=== PATIENT | female | born 1945 | race Caucasian/White ===

== ENCOUNTER → 2020-11-01 16:43 | Outpatient (CLI) | payer MEDICARE, BC, SELFPAY ==
--- NOTE | 2020-11-01 16:49 | RAD_ITS ---
STUDY: X-RAY CHEST REASON FOR EXAM: Female, 75 years old. Fever and cough TECHNIQUE: PA and 2 lateral views of the chest. COMPARISON: None. FINDINGS: Lungs are expanded with superimposed interstitial and airspace opacifications in both lung everett suspicious for Covid pneumonia. There is no demonstrated pleural abnormality. Normal size heart. Normal mediastinum and abhijeet. Normal visualized pulmonary arteries. There is atherosclerotic calcification of the aortic arch with tortuosity. There are diffuse degenerative changes of the visualized thoracic spine. There is degenerative osteoarthritis of the bilateral shoulders. There is no demonstrated abnormality of the visualized soft tissue structures of the upper abdomen. RAD/Chest PA and Lateral IMPRESSION: Interstitial and airspace opacifications in both lung everett without effusions. Follow-up recommended to ensure resolution Electronically Signed: Gerhard Gonzáles MD at 17:08 EDT , Service support ,
== END ==
PROVIDERS: PCP Family Medicine Geriatric Medicine; Referring Provider Nurse Practitioner; Visit Provider Nurse Practitioner
DX: Z20.822 Contact with and (suspected) exposure to COVID-19 (principal)
CPT/HCPCS: 71046

== ENCOUNTER 2022-07-04 16:40 | Emergency (ER) | payer MEDICARE, BC, SELFPAY ==
[2022-07-04 16:45] VITALS: BP 167/70; PULSE 78; RESP 16; TEMP 36.6; O2SAT 98; BMI 31.1
[2022-07-04 17:45] LABS: Absolute Lymphocyte Count 2.37 X10^3/uL (0.83-4.51); Absolute Neutrophil Count 3.4 X10^3/uL (2.0-7.7); Basophil# 0.04 X10^3/uL; Basophil% 0.6 % (0-1); Eosinophil# 0.24 X10^3/uL; Eosinophils% 3.6 % (0-5); Hematocrit 42.1 % (37-47); Hemoglobin 13.6 g/dL (12.0-15.0); Lymphocyte # 2.37 X10^3/ul (0.83-4.51); Lymphocyte % 35.5 % (19-41); Mean Corp Hgb Conc 32.3 g/dL (32-36); Mean Corpuscular Hgb 29.9 pg (27.0-32.0); Mean Corpuscular Volume 92.5 fL (81-99); Monocyte# 0.61 X10^3/uL; Monocyte% 9.1 % (0-10); NRBC Flagged by Analyzer 0 % (0-5); Neutrophil % 51.1 % (47-70); Platelet Count 183 K/mm3 (150-450); RBC Distribution Width CV 13.2 % (11.6-14.6); RBC Distribution Width SD 44.5 fl (35.1-43.9); Red Blood Count 4.55 M/mm3 (4.2-5.4); White Blood Count 6.7 K/mm3 (4.4-11.0)
[2022-07-04 17:48] LABS: Prothrombin Time (Protime)PT. 13.6 SECONDS (11.7-14.9)
[2022-07-04 17:49] LABS: Partial Thromboplast Time 31.1 Seconds (24.1-36.2)
[2022-07-04 17:50] LABS: Anion Gap 6 (5-15); BUN 17 mg/dL (7-18); BUN/Creat Ratio 25.5 RATIO (10-20); Calcium,Total 9.7 mg/dL (8.5-10.1); Chloride 108 mmol/L (98-107); Creatinine, Serum 0.67 mg/dL (0.55-1.02); EST Glomerular Filtration Rate 91 mL/min (>60); Est Glom Filt Rate - Afr Amer 110 mL/min (>60); Estimated Creatinine Clearance 37.26 ml/min; Glucose 84 mg/dL (74-106); Sodium Level 140 mmol/L (136-145)
--- NOTE | 2022-07-04 17:51 | EDS_ITS ---
HPI History of Present Illness Chief Complaint: Lower Extremity Injury Informant: patient and spouse/S.O. Narrative Narrative: Sent here from radiology positive DVT study left leg shortly prior to arrival. She has been having leg and feet pain for past few months. Issues of back pain in the past. She seen her spine surgeon Dr. Matos who ordered ultrasounds of her legs today. Denies chest pains or shortness of breath. Denies leg swelling. No history of PE or DVT. Denies history of chronic kidney disease. She states her nurse practitioner from [facility], Reji Herring just retired last seen 2 months ago. Prior similar symptoms: No PFSH PFSH Medical History Hemorrhoids HTN (hypertension) Incontinence Lumbar strain SOB (shortness of breath) Strain of left hip Home Medications cyclobenzaprine 10 mg tablet 10 mg PO TID PRN muscle spasm #30 tabs 12/01/20 [Rx Last Taken Unknown] ibuprofen 600 mg tablet 600 mg PO Q6H PRN pain #60 tabs 12/01/20 [Rx Last Taken Unknown] apixaban 5 mg (74 tabs) tablets in a dose pack (Eliquis DVT-PE Treat 30D Start) 5 mg PO BID #74 tabs 07/04/22 [Rx Last Taken Unknown] apixaban 5 mg tablet (Eliquis) 5 mg PO BID #74 tabs 07/04/22 [Rx Last Taken Unknown] Allergy/AdvReac Type Severity Reaction Status Date / Time Sulfa (Sulfonamide Allergy Hives Verified 12/01/20 11:14 Antibiotics) Social History Smoking Status: Never smoker alcohol intake: never ROS ROS ED Constitutional Constitutional ED: Denies chills, fever(s) or sweats Eyes Eyes: Denies change in vision ENT ENT ED: Denies dysphagia or sore throat Cardiovascular Cardiovascular: Denies chest pain, leg edema, palpitations or racing heartbeat Respiratory/Chest Respiratory/Chest: Denies cough, dyspnea or dyspnea on exertion Gastrointestinal Gastrointestinal: Denies abdominal pain, diarrhea, nausea or vomiting Genitourinary Genitourinary ED: Denies dysuria, hematuria or urinary frequency Musculoskeletal Musculoskeletal: Reports extremity pain; Denies back pain or neck pain Integumentary Denies rash or wounds Neurologic Neurologic: Denies headache(s), paresthesias or weakness EXAM Physical Exam Const Vital Signs: 07/04/22 16:45 Temperature 97.8 F Temperature Source Temporal Pulse Rate 78 Respiratory Rate 16 Blood Pressure 167/70 H Blood Pressure Mean 102 Pulse Ox 98 Oxygen Delivery Method Room Air Positive well nourished and well developed General Appearance ED: well developed and NAD HEENT Reports moist mucous membranes normocephalic and atraumatic Eyes PERRL, EOMs intact bilaterally and conjunctivae normal General Eye ED: Yes normal appearance of both eyes Neck no lymphadenopathy and supple General: Negative for tenderness Chest Wall Chest: Negative for tenderness Resp normal respiratory effort and normal air movement Effort and Inspection: symmetric chest movement; Negative for respiratory distress Cardio regular rate, regular rhythm and no murmurs Peripheral Pulses: pulses 2+ throughout GI normal to inspection, nondistended, normoactive bowel sounds and non-tender Palpation: Negative for guarding or rebound tenderness present Back/Spine no CVA tenderness and no thoracic nor lumbar tenderness Extremity normal to inspection Extremity Narrative: No calf or medial thigh tenderness. Strong dorsal pedis and PT pulses bilaterally. General Extremety ED: Negative for edema or tenderness General Extremity: Negative for edema Neuro oriented x3 and no sensory deficits noted Sensorium / Orientation: awake and alert Skin no rashes or lesions noted and no wounds MDM MDM MDM Narrative Medical decision making narrative: Interventions / MDM: Differential diagnosis: DVT, neuropathy Diagnosis considered but do not suspect: N/A My EKG interpretation: N/A Imaging independently reviewed and interpreted by myself: N/A External documents reviewed: N/A Test considered but not ordered:N/A ED course: Patient ultrasound report final read reviewed left soleus vein DVT. Patient was last labs in the system was in 2017 I did check lab creatinine 0.67 creatinine clearance is normal. Hemoglobin 13.6. Platelets 183. 1800: We will reach out to her PCP office for discussion of management plan. Discussed with Dr. Espinoza, updated on findings agree with current plan. Her first month Eliquis was written for meds to bed with first dose given in the ED. Patient will follow-up as an outpatient. All questions were answered. Re-evaluation: stable. Disposition discussed with patient/family/significant other: Patient and significant other Case discussed with consulting clinician: PCP Dr. Espinoza Lab Data Attestation: I reviewed the patient's lab results. Labs: Laboratory Results - last 24 hr 07/04/22 07/04/22 07/04/22 17:30 17:30 17:30 WBC 6.7 RBC 4.55 Hgb 13.6 Hct 42.1 MCV 92.5 MCH 29.9 MCHC 32.3 RDW Std Deviation 44.5 H RDW Coeff of [place] 13.2 Plt Count 183 MPV 10.0 Immature Gran % (Auto) 0.100 Neut % (Auto) 51.1 Lymph % (Auto) 35.5 [place] % (Auto) 9.1 Eos % (Auto) 3.6 Baso % (Auto) 0.6 Absolute Neuts (auto) 3.4 Absolute Lymphs (auto) 2.37 Nucleated RBC % 0 PT 13.6 INR 1.0 APTT 31.1 Sodium 140 Potassium 4.0 Chloride 108 H Carbon Dioxide 26.0 Anion Gap 6 BUN 17 Creatinine 0.67 Estim Creat Clear Calc 37.26 Est GFR (MDRD) Af Amer 110 Est GFR (MDRD) Non-Af 91 BUN/Creatinine Ratio 25.5 H Glucose 84 Calcium 9.7 Discharge Plan Triage Chief Complaint: Lower Extremity Injury ED Provider: Matt Luciano Dx/Rx/DC Orders Clinical Impression: Acute deep vein thrombosis (DVT) of left lower extremity, Neuropathy Instructions: DVT Dc, ED Neuropathy, Peripheral Prescriptions: New Eliquis DVT-PE Treat 30D Start 5 mg (74 tabs) tablets,dose pack 5 mg PO BID Qty: 74 0RF Eliquis 5 mg tablet 5 mg PO BID Qty: 74 0RF Rx Instructions: 10 mg twice a day for the first week. Then 5 mg twice a day. No Action ibuprofen 600 mg tablet 600 mg PO Q6H PRN (Reason: pain) Qty: 60 0RF cyclobenzaprine 10 mg tablet 10 mg PO TID PRN (Reason: muscle spasm) Qty: 30 0RF Primary Care Provider: Simba Espinoza Referrals: Simba Espinoza MD [Primary Care Provider] - 3-5 Days Activity Restrictions/Additional Instructions: Left soleus DVT. Take Eliquis as prescribed. Will likely need 3-month treatment. She radicular pain in her legs likely from neuropathy from sciatica. Follow-up with Dr. Matos for this. Follow-up with your PCP office for continued management of your DVT. Disposition Disposition: Home, Self Care Discharge Date/Time: 07/04/22 20:15
== END 2022-07-04 20:15 | disposition home or self-care (01) ==
PROVIDERS: Emergency Provider Emergency Medicine; PCP Family Medicine; Visit Provider Emergency Medicine
DX: I82.462 Acute embolism and thrombosis of left calf muscular vein (principal); G62.9 Polyneuropathy, unspecified; I10 Essential (primary) hypertension; Z79.1 Long term (current) use of non-steroidal anti-inflammatories (NSAID)
CPT/HCPCS: 80048; 85025; 85610; 85730; 93970; 99284; A4216

== ENCOUNTER → 2022-07-04 | Outpatient (CLI) | payer MEDICARE, BC, SELFPAY ==
--- NOTE | 2022-07-04 16:07 | VDLE_ITS ---
Reason For Study: bhavik LE leg pain RIGHT LEFT GSV is normal. GSV is normal. CFV is compressible, spontaneous, phasic, CFV is compressible, spontaneous, phasic, competent and demonstrates normal competent, and demonstrates normal augmentation. augmentation. FV is compressible, spontaneous, phasic, FV is compressible, spontaneous, phasic, competent and demonstrates normal competent and demonstrates normal augmentation. augmentation. POP V is compressible, spontaneous, phasic, POP V is compressible, spontaneous, phasic, competent and demonstrates normal competent and demonstrates normal augmentation. augmentation. T/P Trunk is compressible. T/P Trunk is compressible. PTV is compressible. PTV is compressible. RT PerV is compressible. LT PerV is compressible. Procedure Soleus V is dilated and noncompressible. This is a venous duplex using B-mode, color flow and spectral Doppler. Exam performed in department. The exam was diagnostic. A preliminary report was called and/or faxed to Dr. Matos. Pt to be taken to ED per Dr. Matos. VL/Venous Duplex US - Bhavik Extrem Interpretation Summary Acute deep vein thrombosis is noted in the left soleus vein. The remainder of t he left lower extremity deep venous system is patent and compressible. Deep veins of the righ t lower extremity are patent and compressible segmentally. There is no evidence of right lower extrem ity deep vein thrombosis. Valvular competence appears intact within the proximal deep venous systems bilaterally. The great saphenous veins appear bilaterally patent and compressible segmentall y. Ordering Physician: Albert Matos Performed By: Daniel Guadalupe RVT
== END | disposition home or self-care (01) ==
LOC: CVS 15:57
PROVIDERS: Referring Provider Orthopaedic Surgery; Visit Provider Orthopaedic Surgery
DX: M79.662 Pain in left lower leg (principal); M79.661 Pain in right lower leg
CPT/HCPCS: 93970

== ENCOUNTER → 2022-09-28 | Outpatient (CLI) | payer MEDICARE, BC, SELFPAY ==
--- NOTE | 2022-09-28 08:07 | VDLE_ITS ---
Reason For Study: Left leg pain RIGHT LEFT CFV is compressible, spontaneous, phasic, GSV is normal. competent and demonstrates normal CFV is compressible, spontaneous, phasic, augmentation. competent, and demonstrates normal Procedure augmentation. This is a venous duplex using B-mode, color FV is compressible, spontaneous, phasic, flow and spectral Doppler. competent and demonstrates normal Exam performed in department. augmentation. Compared to 07/04/22. POP V is compressible, spontaneous, phasic, A preliminary report was called and/or faxed competent and demonstrates normal to Dr. Matos. augmentation. T/P Trunk is compressible. PTV is compressible. LT PerV is compressible. SoleusV is compressible. VL/Venous Duplex US, Unilateral Interpretation Summary Deep veins of the left lower extremity are patent and compressible segmentally. There is no evidence of left lower extremity deep vein thrombosis. Valvular competence appears intac t within the proximal deep venous system on the left . The left great saphenous vein appears patent a nd compressible segmentally. The right common femoral vein is patent and compressible . There h as been resolution of the left lower extremity deep vein thrombosis since a prior study on 07/04/2022. Ordering Physician: Albert Matos Referring Physician: Simba Espinoza Performed By: Enid Reina RVT
== END | disposition home or self-care (01) ==
LOC: CVS 08:02
PROVIDERS: PCP Family Medicine; Referring Provider Orthopaedic Surgery; Visit Provider Orthopaedic Surgery
DX: M79.662 Pain in left lower leg (principal)
CPT/HCPCS: 93971

== ENCOUNTER → 2022-10-27 | Outpatient (CLI) | payer MEDICARE, BC, SELFPAY ==
[2022-11-13 11:09] LABS: Anti-Cardiolipin Ab, IgA, Qn < 9 APL U/mL (0-11); Anti-Cardiolipin Ab, IgG, Qn < 9 GPL U/mL (0-14); Anti-Cardiolipin Ab, IgM, Qn < 9 MPL U/mL (0-12); Protein C, Functional 141 % (73-180); Protein S, Funtional 84 % (63-140)
== END | disposition home or self-care (01) ==
LOC: LAB 11:16
PROVIDERS: PCP Family Medicine; Referring Provider Family Medicine; Visit Provider Family Medicine
DX: I82.429 Acute embolism and thrombosis of unspecified iliac vein (principal)
CPT/HCPCS: 36415; 81241; 85303; 85306; 86147

== ENCOUNTER 2023-02-21 15:28 | Emergency (ER) | payer MEDICARE, BC, SELFPAY ==
[2023-02-21 15:29] VITALS: BP 148/85; PULSE 78; RESP 16; TEMP 36.2; O2SAT 98; BMI 29.8
--- NOTE | 2023-02-21 15:55 | VDLE_ITS ---
Reason For Study: LLE Swelling RIGHT LEFT CFV is compressible, spontaneous, phasic, CFV is compressible, spontaneous, phasic, competent and demonstrates normal competent, and demonstrates normal augmentation. augmentation. GSV is normal. FV is compressible, spontaneous, phasic, competent and demonstrates normal augmentation. POP V is compressible, spontaneous, phasic, competent and demonstrates normal augmentation. T/P Trunk is compressible. PTV is compressible. LT PerV is compressible. Lt Soleal V is compressible. VL/Venous Duplex US, Unilateral Interpretation Summary Deep veins of the left lower extremity are patent and compressible segmentally. There is no evidence of left lower extremity deep vein thrombosis. Valvular competence appears intac t within the proximal deep venous system on the left . The left great saphenous vein appears patent a nd compressible segmentally. The right common femoral vein is patent and compressible . Ordering Physician: Eriberto Boone Performed By: Deangelo Burton RVT
--- NOTE | 2023-02-21 15:58 | EDS_ITS ---
HPI History of Present Illness Chief Complaint: Edema Detail of Chief Complaint: Swelling and discomfort right lower extremity Informant: patient Onset/Context/Timing Onset: Yesterday Context: Sudden Onset Timing: Continuous Quality of Pain: Dull Location: Left leg and foot Current Severity: Mild Maximum Severity: Moderate Worsened by: Palpitation Relieved by: Nothing Associated Symptoms Associated Symptoms: Negative for Parasthesia, Weakness or Loss of Funtion Narrative Narrative: Patient is a 77-year-old woman with history of DVT. Her apixaban was stopped November. She states she has had a prior clot in the left lower extremity. She denies shortness of breath, pleuritic chest pain, orthopnea, PND or dyspnea on exertion. She states the right foot is slightly swollen. She denies history of congestive heart failure. She does have a history of hypertension. She denies fever, chills night sweats. She also raise concern for cellulitis. There is no history of crystal induced arthritis. There is no history of weight loss or night sweats. There is no history of cancer. Tetanus Immunization: 5-10 years [facility] Medical History Hemorrhoids HTN (hypertension) Incontinence Lumbar strain SOB (shortness of breath) Strain of left hip Home Medications cyclobenzaprine 10 mg tablet 10 mg PO TID PRN muscle spasm #30 tabs 12/01/20 [Rx Last Taken Unknown] ibuprofen 600 mg tablet 600 mg PO Q6H PRN pain #60 tabs 12/01/20 [Rx Last Taken Unknown] apixaban 5 mg (74 tabs) tablets in a dose pack (Eliquis DVT-PE Treat 30D Start) 5 mg PO BID #74 tabs 07/04/22 [Rx Last Taken Unknown] apixaban 5 mg tablet (Eliquis) 5 mg PO BID #74 tabs 07/04/22 [Rx Last Taken Unknown] nitrofurantoin monohydrate/macrocrystals 100 mg capsule 100 mg PO Q12 #10 CAPSULES 02/21/23 [Rx Last Taken Unknown] Allergy/AdvReac Type Severity Reaction Status Date / Time Sulfa (Sulfonamide Allergy Hives Verified 02/21/23 15:29 Antibiotics) Social History (Updated 02/21/23 @ 16:[address] Eriberto Boone MD) household members: none Smoking Status: Never smoker alcohol intake: never ROS ROS ED Constitutional Constitutional ED: Denies chills, fever(s), subjective, sweats or weight loss Eyes Eyes: Denies blurry vision or change in vision ENT ENT ED: Denies ear pain, rhinorrhea or sore throat Cardiovascular Cardiovascular: Denies chest pain, orthopnea, palpitations or paroxysmal nocturnal dyspnea Respiratory/Chest Respiratory/Chest: Denies cough, dyspnea, dyspnea on exertion, orthopnea or paroxysmal nocturnal dyspnea Gastrointestinal Gastrointestinal: Denies abdominal pain, constipation, nausea or vomiting Genitourinary Genitourinary ED: Denies dysuria, hematuria or urinary frequency Musculoskeletal Musculoskeletal: Denies arthralgias, back pain, myalgias or neck pain Integumentary Denies rash Neurologic Neurologic: Denies headache(s), paresthesias or weakness Psychiatric Psychiatric: Denies anxiety or depression Endocrine Endocrinology: Reports polydipsia and polyuria Hematologic/Lymphatic Hematologic/Lymphatic: Denies easy bleeding or easy bruising EXAM Physical Exam Narrative Exam Narrative: Vital signs reveal elevated blood pressure 148/85 and mean arterial pressure 106. Vitals otherwise unremarkable. Const Vital Signs: 02/21/23 15:29 02/21/23 16:51 Temperature 97.2 F L Temperature Source Oral Pulse Rate 78 Respiratory Rate 16 Respiratory Effort Normal Non-Labored Blood Pressure 148/85 H Blood Pressure Mean 106 Pulse Ox 98 Oxygen Delivery Method Room Air Positive well nourished, well developed and obese General Appearance ED: well developed; Negative for NAD Nutritional Appearance: obese HEENT Reports moist mucous membranes normocephalic and atraumatic Eyes PERRL Eyes Narrative: Extract muscles intact. Sclera is anicteric. Conjunctive is pink. Neck full ROM and supple Resp normal respiratory effort, no retractions and clear to auscultation bilaterally Cardio regular rate, regular rhythm, S1 normal heart sound, S2 normal heart sound and no murmurs GI non-tender and non-distended Back/Spine no CVA tenderness Extremity Negative for normal to inspection Extremity Narrative: The left leg and foot are slightly discolored with swelling. There is a difference compared to the right lower extremity. Patient has no hair on her toes which would suggest peripheral arterial disease. There is no erythema, warmth, induration or lymphangitis. There is no popliteal lymphadenopathy. Neuro oriented x3, CN's II-XII intact bilaterally and moves all extremities Psych mental status grossly normal Skin no wounds Lesions: no lesions Rashes: no rashes MDM MDM MDM Narrative Medical decision making narrative: Differential diagnosis would be pelvic mass with unilateral obstruction, atypical presentation for heart failure, hypoalbuminemia, kidney disease with proteinuria and need to evaluate for DVT since she has had prior DVTs in that leg. She is presently not on an anticoagulant. Venous duplex study was obtained. CBC to assess white count anemia. BMP to assess renal function to determine if anticoagulant dose needs to be adjusted. History & Record Review Additional record(s) reviewed:: Prior outpatient record and Prior labs Lab Data Attestation: I reviewed the patient's lab results. Lab results narrative: White count and differential are normal. Basic metabolic panel with slight elevation of creatinine of 1.22 with a GFR estimated at 45. Urine is positive for blood, nitrites and leukoesterase. Patient has 2+ bacteria. Urine culture was sent. Since she has allergy to sulfa and has been told she cannot take quinolones since she has had ruptured tendons we will treat with Macrobid. She also had our list cephalexin for unknown reason. Labs: Laboratory Results - last 24 hr 02/21/23 02/21/23 16:10 16:45 WBC 8.7 RBC 4.67 Hgb 13.7 Hct 42.9 MCV 91.9 MCH 29.3 MCHC 31.9 L RDW Std Deviation 42.6 RDW Coeff of [place] 12.7 Plt Count 276 MPV 9.8 Immature Gran % (Auto) 0.600 Neut % (Auto) 56.1 Lymph % (Auto) 30.1 [place] % (Auto) 9.4 Eos % (Auto) 3.1 Baso % (Auto) 0.7 Absolute Neuts (auto) 4.9 Absolute Lymphs (auto) 2.62 Nucleated RBC % 0 Sodium 140 Potassium 4.1 Chloride 110 H Carbon Dioxide 29.0 Anion Gap 1 L BUN 19 H Creatinine 1.22 H Estim Creat Clear Calc 30.06 Est GFR (MDRD) Af Amer 55 L Est GFR (MDRD) Non-Af 45 L BUN/Creatinine Ratio 15.6 Glucose 98 Calcium 9.7 Total Bilirubin 0.40 AST 30 ALT 39 Alkaline Phosphatase 99 Total Protein 7.3 Albumin 3.7 Globulin 3.6 Albumin/Globulin Ratio 1.0 Urine Color Yellow Urine Clarity Clear Urine pH 7.0 Ur Specific [place] 1.010 Urine Protein Negative Urine Glucose (UA) Normal Urine Ketones Negative Urine Occult Blood 25 H Urine Nitrite Positive H Urine Bilirubin Negative Urine Urobilinogen Normal Ur Leukocyte Esterase 100 H Urine RBC 0-5 SEEN Urine WBC 0-5 SEEN Ur Squamous Epith Cells 0 SEEN Urine Bacteria 2+ Urine Mucus 0 SEEN Discharge Plan Triage Chief Complaint: Edema ED Provider: Eriberto Boone Dx/Rx/DC Orders Clinical Impression: Lymphedema of both lower extremities, HTN (hypertension), Acute cystitis, History of deep venous thrombosis Instructions: ED Peripheral Edema, Bilateral, ED Cystitis Female Adult Prescriptions: New nitrofurantoin monohyd/m-cryst [nitrofurantoin monohyd/m-cryst] 100 mg capsule 100 mg PO Q12 Qty: 10 0RF No Action ibuprofen 600 mg tablet 600 mg PO Q6H PRN (Reason: pain) Qty: 60 0RF cyclobenzaprine 10 mg tablet 10 mg PO TID PRN (Reason: muscle spasm) Qty: 30 0RF Eliquis DVT-PE Treat 30D Start 5 mg (74 tabs) tablets,dose pack 5 mg PO BID Qty: 74 0RF Eliquis 5 mg tablet 5 mg PO BID Qty: 74 0RF Rx Instructions: 10 mg twice a day for the first week. Then 5 mg twice a day. Primary Care Provider: Geraldine Allred Referrals: Simba Espinoza MD [Non-Staff] - Disposition Disposition: Home, Self Care
[2023-02-21 16:23] LABS: Absolute Lymphocyte Count 2.62 X10^3/uL (0.83-4.51); Absolute Neutrophil Count 4.9 X10^3/uL (2.0-7.7); Basophil# 0.06 X10^3/uL; Basophil% 0.7 % (0-1); Eosinophil# 0.27 X10^3/uL; Eosinophils% 3.1 % (0-5); Hematocrit 42.9 % (37-47); Hemoglobin 13.7 g/dL (12.0-15.0); Lymphocyte # 2.62 X10^3/ul (0.83-4.51); Lymphocyte % 30.1 % (19-41); Mean Corp Hgb Conc 31.9 g/dL (32-36); Mean Corpuscular Hgb 29.3 pg (27.0-32.0); Mean Corpuscular Volume 91.9 fL (81-99); Mean Platelet Vol. 9.8 fl (6.2-12.0); Monocyte# 0.82 X10^3/uL; Monocyte% 9.4 % (0-10); NRBC Flagged by Analyzer 0 % (0-5); Neutrophil # 4.89 X10^3/uL (2.7-7.7); Neutrophil % 56.1 % (47-70); Platelet Count 276 K/mm3 (150-450); RBC Distribution Width CV 12.7 % (11.6-14.6); RBC Distribution Width SD 42.6 fl (35.1-43.9); Red Blood Count 4.67 M/mm3 (4.2-5.4); White Blood Count 8.7 K/mm3 (4.4-11.0)
--- OUTSIDE RECORDS SUMMARY | 2023-02-21 16:45 | XMS RPT_ITS | CCD ---
Author Name Unknown Address [id number] [place] [address] [facility] Care Team Providers Care Open Hearth Worker Name Role Phone Unavailable Unavailable Unavailable Ada Varghese Unavailable Unavailable Ada Varghese Unavailable Unavailable Ada Varghese Unavailable Unavailable Ada Varghese Unavailable Unavailable Emma Marquita Unavailable Thelma Valerio Unavailable Unavailable Ada Grier Unavailable Unavailable Unavailable Unavailable Carly Gonzales Unavailable Unavailable Kosta Rea Unavailable Unavailable Unavailable Unavailable Unavailable Evelina Kidd Unavailable Unavailable Evelina Kidd Unavailable Unavailable Toña Yeager Unavailable Heath Herrera Unavailable Unavailable Unavailable Unavailable Kristie Hunt Unavailable Unavailable Kosta Rea Unavailable Unavailable Heath Hardwick Unavailable Unavailable Unavailable Unavailable Evelina Kidd Unavailable Unavailable Maria Luz Moise CNP Unavailable Toña Yeager Unavailable Jolanta Lo MA Unavailable Unavailable Heath Herrera LPN Unavailable Unavailable Thelma Valerio Unavailable Unavailable Unavailable Unavailable Maria Luz Moise CNP Primary Care Provider Maria Luz Moise Unavailable Geraldine Allred MD Primary Care Provider Emma Maria Luz Unavailable Marge Domínguez DO Unavailable Geraldine Allred Unavailable Babatunde Orozco Unavailable Geraldine Allred Primary Care Unavailable VIDAL Orozco Attending Unavailable Geraldine Allred Attending Unavailable Geraldine Allred Primary Care Unavailable Brian Banks CNP Primary Care Provider 1( [phone] DAY, ANJU ANDERSON Attending Unavailable DAY, ANJU ANDERSON Referring Unavailable KOSTA BAUTISTA Primary Care Unavailable BRIAN BANKS Primary Care Unavailable DAY, ANJU ANDERSON Attending Unavailable GIOVANA JAMES Attending Unavailable MARIA LUZ MOISE Primary Care Unavailable MARIA LUZ MOISE Primary Care Unavailable ROLAND CORCORAN Attending Unavailable ANITA PEPPER Attending Unavailable MARIA LUZ MOISE Primary Care Unavailable Geraldine Allred MD Primary Care Provider Allergies Allergy Classification Reported Allergen(s) Allergy Type Date of Onset Reaction(s) Facility (17 sources) sulfADIAZINE; Translations: [SulfADIAZINE *Sulfonamides ] Drug Allergy [facility] Work Phone: (6 sources) Penicillins; Translations: [Penicillins] drug allergy [facility] 300 Work Phone: (6 sources) Sulfonamides (Antibiotic) drug allergy [facility] 300 Work Phone: (14 sources) Sulfonamides (Antibiotic); Translations: [SULFA (SULFONAMIDE ANTIBIOTICS)] Propensity to adverse reactions to drug 03-12-19 13 [facility] (5 sources) Clindamycin; Translations: [CLINDAMYCIN] Drug Allergy 04-06-19 22 Other: See Comments, Other (See Comments) [facility] Work Phone: (1 source) Sulfur Drug Allergy [facility] Medications Current Medications Medication Drug Class(es) Dates Sig (Normalized) Sig (Original) doxycycline monohydrate 100 mg oral capsule (2 sources) Tetracycline-cla ss Drug Start: 01-09-2022 End: 01-15-2022 take 1 capsule by mouth twice daily doxycycline monohydrate 100 mg oral capsule ; 1 cap(s) orally 2 times a day Quantity: 14 Refills: 0 Ordered: 09-Jan-2022 Babatunde Orozco Start: 09-Jan-2022 End: 15-Jan-2022 Generic Substitution Allowed Comments: Avoid prolonged or excessive exposure to direct and/or artificial sunlight while taking this medication.Do not take this drug if you are .Finish all this medication unless otherwise directed by prescriber.Medicati on should be taken with plenty of water. Completed/Discontinued Medications Medication Drug Class(es) Dates Sig (Normalized) Sig (Original) [id number] 200 actuat albuterol 0.09 mg/actuat metered dose inhaler (3 sources) beta2-Adrenergic Agonist Start: 11-12-2020 take 2 puff(s) by inhalation three times daily ProAir HFA 108 (90 Base) MCG/ACT Inhalation Aerosol Solution 2 (two) Puff tid for 0 days Quantity: 1 {Each} Refills: 0 Ordered: 12-Nov-2020 Maria Luz Moise Start : 12-Nov-2020 Active Comments: inhaler Problems Active Problems Problem Classification Problem Date Documented Da te Episodic/Chronic Abdominal pain (17 sources) Flank pain; Translations: [Flank pain] 12-06-2017 Episodic Anxiety disorders (20 sources) Anxiety; Translations: [Mixed anxiety and depressive disorder] 12-06-2017 Chronic Past or Other Problems Problem Classification Problem Date Documented Date Episodic/Chronic Coronary atherosclerosis and other heart disease (5 sources) Coronary atherosclerosis and other heart disease Other bone disease and musculoskeletal deformities (1 source) Other specified disorders of bone density and structure, left thigh; Translations: [Oth disrd of bone density and structure, left thigh] Onset: 04-14-2021 Episodic Other non-traumatic joint disorders (20 sources) Hip pain; Translations: [Hip pain, left] Onset: 02-22-2021 12-06-2017 Episodic Results Test Name Value Interpretation Reference Range Facil ity Vital Signs Date Time Vital Sign Value Performing Clinician Facility 06-21-2022 08:09-0400 Diastolic blood pressure 83 mm[Hg] Anju Fink MD Work Phone: [facility] 06-21-2022 08:09-0400 Heart rate 67 /min Anju Fink MD Work Phone: [facility] 06-21-2022 08:09-0400 SaO2% (BldA) [Mass fraction] 96 % Anju Fink MD Work Phone: [facility] 06-21-2022 08:09-0400 Systolic blood pressure 127 mm[Hg] Anju Fink MD Work Phone: [facility] 06-21-2022 07:59-0400 Body height 157.5 cm Anju Fink MD Work Phone: [facility] 06-21-2022 07:59-0400 Body mass index (BMI) [Ratio] 31.09 kg/m2 Anju Fink MD Work Phone: [facility] 06-21-2022 07:59-0400 Body weight 77.11 kg Anju Fink MD Work Phone: [facility] 01-09-2022 18:53-0500 Body height 157.4 cm Geraldine Allred Other Phone: [facility] 01-09-2022 18:53-0500 Body temperature 97.88 [degF] Geraldine Allred Other Phone: [facility] 01-09-2022 18:53-0500 Diastolic blood pressure 91 mm[Hg] Geraldine Brigida Other Phone: [facility] 01-09-2022 18:53-0500 Heart rate 74 /min Geraldine Seampaleksandra Other Phone: [facility] 01-09-2022 18:53-0500 Respiratory rate 18 /min Geraldine Allred Other Phone: [facility] 01-09-2022 18:53-0500 SaO2% (BldA) [Mass fraction] 97 % Geraldine Allred Other Phone: [facility] 01-09-2022 18:53-0500 Systolic blood pressure 156 mm[Hg] Geraldine Seampaleksandra Other Phone: [facility] 04-06-2021 17:21-0500 Body weight 74.39 kg Geraldine Allred MD Work Phone: [facility] 04-06-2021 17:21-0500 Diastolic blood pressure 88 mm[Hg] Geraldine Allred MD Work Phone: [facility] 04-06-2021 17:21-0500 Heart rate 82 /min Geraldine Allred MD Work Phone: [facility] 04-06-2021 17:21-0500 Systolic blood pressure 138 mm[Hg] Grealdine Allred MD Work Phone: [facility] 12-06-2020 10:26-0400 Body height 157.48 cm Jolanta Lo MA [facility] Work Phone: 12-06-2020 10:26-0400 Body mass index (BMI) [Ratio] 29.82 kg/m2 Jolanta Lo MA [facility] Work Phone: 12-06-2020 10:26-0400 Body surface area Derived from formula 1.75 m2 Jolanta Lo MA [facility] Work Phone: 12-06-2020 10:26-0400 Body temperature 97.1 [degF] Jolanta Lo MA [facility] Work Phone: Encounters Encounter Date Encounter Type Care Provider Facility Start: 11-08-2022 ambulatory Soraida Lacey MA [facility] Procedures Date Procedure Procedure Detail Performing Clinician Start: 06-21-2022 Ecg routine ecg w/least 12 lds w/i&r Anju Fink MD Work Phone: Start: 03-12-2021 Adult depression screening assessment Geraldine Allred MD Work Phone: Start: 11-01-2020 End: 11-01-2020 Chest PA and Lateral Comments: See Note; NOTES: [facility] Imaging Services [address] [place] [address] Chest PA and Lateral MR#: [id number] Acct: [id number] Name: BROOKE BLACK Rep #: [id number] : 1945 F 75 From: Preston Gonzáles MD PCP: Dr. Leonardo Mccray MD Status: REG CLI Study: Chest PA and Lateral Date of Exam: 11/01/20 Exam# [id number] Ordering Dr: Maria Luz Moise NP INSTRUCTOR WATCH ASSEMBLY-C STUDY: X-RAY CHEST REASON FOR EXAM: Female, 75 years old. Fever and cough TECHNIQUE: PA and 2 lateral views of the chest. COMPARISON: None. FINDINGS: Lungs are expanded with superimposed interstitial and airspace opacifications in both lung everett suspicious for Covid pneumonia. There is no demonstrated pleural abnormality. Normal size heart. Normal mediastinum and abhijeet. Normal visualized pulmonary arteries. There is atherosclerotic calcification of the aortic arch with tortuosity. There are diffuse degenerative changes of the visualized thoracic spine. There is degenerative osteoarthritis of the bilateral shoulders. There is no demonstrated abnormality of the visualized soft tissue structures of the upper abdomen. RAD/Chest PA and Lateral IMPRESSION: Interstitial and airspace opacifications in both lung everett without effusions. Follow-up recommended to ensure resolution Electronically Signed: Gerhard Gonzáles MD at 17:08 EDT , Service support , CC: INSTRUCTOR WATCH ASSEMBLY-C Maria Luz Moise; Dr. Leonardo Mccray MD Demolition Engineer: Signed Maria Luz Moise [facility] Work Phone: Start: 06-17-2019 Xray Shoulder Complete Min 2 Views Evelinabryce Leijaotf Start: 01-24-2019 Xray Wrist Complete Min 3 View Kosta Rea Start: 01-09-2019 Xray Wrist Complete Min 3 View Kosta Rea Dilation and Curetta ge of Uterus - Multiple Thelma Teodoro Dilation and Curetta ge of Uterus - Multiple Heath Javier Dilation and Curetta ge of Uterus - Multiple Kristie Gilbert Dilation and Curetta ge of Uterus - Multiple Heath Hardwick Dilation and Curetta ge of Uterus - Multiple Heath Javier Dilation and Curetta ge of Uterus - Multiple Jolanta Lo MA Hemorrhoidectomy Thelma Jalloh lear Hemorrhoidectomy Heath Scotty s Hemorrhoidectomy Kristie Avina an Hemorrhoidectomy Heath Julio Cesar h Hemorrhoidectomy Heath Soctty s Hemorrhoidectomy Jolanta Damico hy MA History of repair of musculotendinous cuff of shoulder History of rotator cuff surgery Jolanta Lo MA Plan of Treatment Date Care Activity Detail Author Start: 11-11-2025 Tetanus vaccination Tetanus: Every 10yrs [facility] Start: 11-11-2025 Urine microalbumin profile [facility] Start: 03-31-2024 DIABETES SCREEN DIABETES SCREEN [facility] Start: 03-31-2024 Diabetes Screening Diabetes Screening [facility] Start: 10-20-2022 Influenza vaccination Influenza Vaccine (#1) [facility] Start: 07-03-2022 End: 07-03-2022 Patient encounter procedure 07/03/2022 11:00 AM EDT Appointment [facility] [address] [place] [phone] Anju Fink MD [address] [place] [id number] [facility] Start: 04-06-2022 ANNUAL PCP TEAM CHRONIC DISEASE VISIT ANNUAL PCP TEAM CHRONIC DISEASE VISIT [facility] Start: 03-12-2022 Adult depression screening assessment DEPRESSION SCREENING [facility] Start: 03-12-2022 COVID-19 VACCINE (#1) COVID-19 VACCINE (#1) [facility] Immunizations Immunization Date Immunization Notes Care Provider Fa cility 12-01-2020 influenza, high-dose , quadrivalent vaccine (FLUZONE HIGH DOSE QUADRIVALENT) Geraldine Allred MD Work Phone: [facility] Work Phone: 12-01-2020 zoster vaccine recombinant Geraldine Allred MD Work Phone: [facility] Work Phone: 12-01-2020 influenza virus vaccine, unspecified formulation Soraida Lacey MA [facility] 03-02-2020 zoster vaccine recombinant Geraldine Allred MD Work Phone: [facility] Work Phone: 12-16-2018 influenza, injectabl e, quadrivalent, preservative free Geraldine Allred MD Work Phone: [facility] Work Phone: 11-20-2017 influenza, injectabl e, quadrivalent, preservative free Geraldine Allred MD Work Phone: [facility] Work Phone: 12-06-2016 influenza, injectabl e, quadrivalent, preservative free Geraldine Allred MD Work Phone: [facility] Work Phone: 11-12-2015 tetanus toxoid, redu libertad diphtheria toxoid, and acellular pertussis vaccine, adsorbed Geraldine Allred MD Work Phone: [facility] Work Phone: 12-04-2014 influenza, high dose seasonal, preservative-free Geraldine Allred MD Work Phone: [facility] Work Phone: 04-07-2009 novel [id number], preservative-free, injectable Geraldine Allred MD Work Phone: [facility] Work Phone: 12-08-2008 influenza virus vaccine, whole virus Geraldine Allred MD Work Phone: [facility] Work Phone: 12-20-2007 influenza virus vaccine, whole virus Geraldine Allred MD Work Phone: [facility] Work Phone: Payers Date Payer Category Payer Unknown [id number] 2011 Unknown [id number] 2009 Medicare [id number] 2009 Medicare [id number] 2009 Medicare MEDICARE MEDICAR E A AND B [id number] 2009-Present [phone] [address] [address] [place] [address] Medicare [id number] 2009 Medicare [id number] 2009 Unknown 1945 Unknown [id number] 1945 Unknown [id number] 1945 Unknown [id number] 1945 Unknown [id number] 1945 Unknown [id number] 1945 Unknown [id number] 1945 Unknown [id number] Social History Date Type Detail Facility Start: 10-28-2016 End: 11-08-2016 Tobacco smoking status NMIS Unknown if ever smoked [facility] Work Phone: Start: 1945 Sex Assigned At Not on file [facility] Work Phone: Alcohol use: Occasional alcohol use. [facility] Work Phone: Tobacco use: Never smoker. [facility] Work Phone: Alcohol use: Alcohol use: [facility] Work Phone: Tobacco use: Tobacco use: [facility] Work Phone: Start: 09-13-2016 End: 01-24-2021 Tobacco smoking status NHIS Never smoked tobacco [facility] Start: 09-13-2016 End: 01-24-2021 Tobacco use and exposure Smokeless tobacco non-user [facility] Start: 02-22-2021 End: 06-21-2022 Alcohol intake Ex-drinker (finding) [facility] Start: 03-26-2021 End: 06-21-2022 Exposure to SARS-CoV-2 (event) Not sure [facility] Start: 03-12-2021 End: 04-25-2021 Alcohol intake Lifetime non-drinker (finding) [facility] Start: 01-24-2021 History SDOH Alcohol Frequency 1 [facility] Start: 03-15-2021 End: 04-25-2021 History of Social function [facility] Start: 03-15-2021 End: 04-25-2021 Tobacco use panel [facility] Start: 12-09-2020 Gender identity Identifies as female gender (finding) [facility] Start: 12-09-2020 Sexual orientation Heterosexual (finding) [facility] Functional Status Date Assessment Result Facility NEGATED: Highlighted row Functional performance Functional status health issues are not documented Disease [facility] 300 Work Phone: Mental Status Date Assessment Result Facility NEGATED: Highlighted row Cognitive function [Interpretation] Cognitive status health issues are not documented Disease [facility] 300 Work Phone: Clinical Notes 02-22-2021 to 11-08-2022 Soraida Lacey MA - 11/08/2022 7:47 AM Ruperto Fink MD - 06/21/2022 8:00 AM EDTPatient InstructionsPatient Celena Allred MD - 04/06/2021 5:38 PM EST Note Date & Type Note Facility 11-08-2022 Note Patient Outreach (LUL TNAV) BROOKE BLACK ([id number]) 1945 F Date Time Provider Department 11/08/22 SORAIDA LACEY NETNAV During your visit today, we recorded the following information about you: Sroaida Lacey MA 12/26/2022 3:22 PM Addendum POPULATION HEALTH NAVIGATION OUTREACH Action/FYI Spoke to Brooke. Patient needs form filled for zandra. Advised patient to call the office and speak to the nurse Brooke GUTIERREZ. Returned call LVM Called Brooke. She will call back to schedule appointment LVCecilia BELL ANNUAL MEDICARE WELLNESS BP Controlled (<130/80) Never done Advance Directive Discussion Never done Annual PCP Team Chronic Disease Visit due on 04/06/2022 Influenza Vaccine(1) due on 10/20/2022 Patient Identified by Name and : YES, via phone Outreach Outcome/Action Spoke to patient / parent / legal guardian: Patient will return the call or ask for return call Unable to reach patient: Left message Did you use a PCP flex slot to schedule this appointment? No Reason for Outreach Care Gap or Scheduling/Wellness visits Payer: Payor: MEDICARE / Plan: MEDICARE A AND B / Product Type: Medicare / Care Gap Reviewed:: Annual Wellness visit Controlling Blood Pressure Flu Vaccine Reminder: Reminder note to check Health Maintenance for items below Health Maintenance items due: Covid-19 Vaccine(1) Never done Hepatitis C Screening Never done BP Controlled (<130/80) Never done Bone Density Screening Never done Pneumococcal Vaccine: 65+(1 - PCV) Never done Advance Directive Discussion Never done Depression Assessment Never done Annual PCP Team Chronic Disease Visit due on 04/06/2022 Influenza Vaccine(1) due on 10/20/2022 Navigation Signature: Soraida Lacey MA November 08, 2022 7:47 AM Allergies As of Date: 11/08/2022 Noted Allergy Reaction CLEOCIN (CLINDAMYCIN) 04/06/2021 14 - Other: See Comments Comments: Chest pain like weight on her chest SULFA (SULFONAMIDE ANTIBIOTICS) 03/12/2012 4 - Hives Date Reviewed: 04/25/2021 Reviewed by: Maira Segura APRN.CARTON GLUING MACHINE OPERATOR - Fully Assessed Reason for Visit: Population Health Navigation Outreach [3910] Cmt: ACO CEZAR PCSA Prescriptions as of 12/26/2022 - no122/iron/folic acid ( MULTI ORAL) Take by mouth. - multivitamin with minerals (HAIR,SKIN AND NAILS ORAL) Take by mouth. - mirabegron (MYRBETRIQ) 25 mg Tb24 Take 1 tablet by mouth once daily. - miSOPROStol (CYTOTEC) 200 mcg tablet Take two tablets PO night before procedure and two tablets morning of procedure - IBUPROFEN ORAL Take by mouth. - multivitamin tablet Take 1 tablet by mouth once daily. - biotin 5,000 mcg subl Dissolve under the tongue. - aspirin, enteric coated (ASPIRIN, ENTERIC COATED) 81 mg EC tablet Take 81 mg by mouth once daily. - losartan potassium (LOSARTAN ORAL) Take 50 mg by mouth once daily. - Ascorbic Acid (VITAMIN C) 100 mg tablet Take 100 mg by mouth once daily. - ergocalciferol, vitamin D2, (VITAMIN D2 ORAL) Take by mouth. Vitamin D3 - Zinc 50 mg tab Take by mouth. - fish oil/borage/flax/om3,6,9 1 (OMEGA 3-6-9 ORAL) Take by mouth. Problem List As Of Date 11/08/2022 Noted Resolved Primary hypertension [I10] 03/13/2021 Bilateral leg edema [R60.0] 03/13/2021 Primary osteoarthritis of both hips [M16.0] 03/13/2021 Tear of left gluteus medius tendon [S76.012A] 03/13/2021 Partial hamstring tear [S76.319A] 03/13/2021 Encounter Status:Closed by SORAIDA LACEY on 11/08/22 [facility] 11-08-2022 Note HNO ID: [id number] Author: Soraida Lacey MA Service: ? Author Type: Computer Science Professor Type: Progress Notes Filed: 12/26/2022 3:22 PM Note Text: POPULATION HEALTH NAVIGATION OUTREACH Action/FYI Spoke to Brooke. Patient needs form filled for scooter. Advised patient to call the office and speak to the nurse Brooke GUTIERREZ. Returned call BRENDA Called Brooke. She will call back to schedule appointment Cecilia [facility] ANNUAL MEDICARE WELLNESS BP Controlled (<130/80) Never done Advance Directive Discussion Never done Annual PCP Team Chronic Disease Visit due on 04/06/2022 Influenza Vaccine(1) due on 10/20/2022 Patient Identified by Name and : YES, via phone Outreach Outcome/Action Spoke to patient / parent / legal guardian: Patient will return the call or ask for return call Unable to reach patient: Left message Did you use a PCP flex slot to schedule this appointment? No Reason for Outreach Care Gap or Scheduling/Wellness visits Payer: Payor: MEDICARE / Plan: MEDICARE A AND B / Product Type: Medicare / Care Gap Reviewed:: Annual Wellness visit Controlling Blood Pressure Flu Vaccine Reminder: Reminder note to check Health Maintenance for items below Health Maintenance items due: Covid-19 Vaccine(1) Never done Hepatitis C Screening Never done BP Controlled (<130/80) Never done Bone Density Screening Never done Pneumococcal Vaccine: 65+(1 - PCV) Never done Advance Directive Discussion Never done Depression Assessment Never done Annual PCP Team Chronic Disease Visit due on 04/06/2022 Influenza Vaccine(1) due on 10/20/2022 Navigation Signature: Soraida Lacey MA November 08, 2022 7:47 AM [facility] 11-08-2022 History of Present illness Narrative POPULATION HEALTH NAVIGATION OUTREACH Action/FYI LVM NOMYCHART ANNUAL MEDICARE WELLNESS BP Controlled (<130/80) Never done Advance Directive Discussion Never done Annual PCP Team Chronic Disease Visit due on 04/06/2022 Influenza Vaccine(1) due on 10/20/2022 Patient Identified by Name and : NO Outreach Outcome/Action Unable to reach patient: Left message Did you use a PCP flex slot to schedule this appointment? No Reason for Outreach Care Gap or Scheduling/Wellness visits Payer: Payor: MEDICARE / Plan: MEDICARE A AND B / Product Type: Medicare / Care Gap Reviewed:: Annual Wellness visit Controlling Blood Pressure Flu Vaccine Reminder: Reminder note to check Health Maintenance for items below Health Maintenance items due: Covid-19 Vaccine(1) Never done Hepatitis C Screening Never done BP Controlled (<130/80) Never done Bone Density Screening Never done Pneumococcal Vaccine: 65+(1 - PCV) Never done Advance Directive Discussion Never done Depression Assessment Never done Annual PCP Team Chronic Disease Visit due on 04/06/2022 Influenza Vaccine(1) due on 10/20/2022 Navigation Signature: Soraida Lacey MA November 08, 2022 7:47 AM documented in this encounter [facility] 06-21-2022 History of Present illness Narrative General Cardiology New Patient Clinic Consult [facility], Heart & Vascular 06/21/2022 Anju Fink MD [address] [place] [phone] Patient: Boroke Black Date of : 1945 (76 y.o.) PCP: Brian Banks CNP Date of Service: 06/21/2022 Chief Complaint: Initial Visit (Intake) (Leg swelling) Assessment and Plan: 1. Lower extremity edema Trivial lower extremity edema likely dependent and related to sodium intake however echocardiogram reasonable to exclude any cardiomyopathy - Echocardiogram complete; Future 2. Cardiovascular risk assessment Overall patient is able to complete at least 4 metabolic equivalents of activity without any difficulty including stairs and vacuuming. Based on her age, hesitant to recommend cholesterol medication, however if she is very concerned about primary prevention that would be reasonable something like 10 mg rosuvastatin or 20 mg atorvastatin - ECG 12 lead; Future - ECG 12 lead It has been a pleasure caring for this patient. Please don't hesitate to reach out to my office directly with any questions or concerns. Follow-up: Return if symptoms worsen or fail to improve. Anju Fink MD, [facility] Non-Invasive Cardiology [facility] Heart and [facility] P:[phone] F:[phone] History of Present Illness: Brooke Black is a 76 y.o. woman with a past medical history of hypertension who presents today to find out if her heart is healthy enough to undergo surgery. She is going to be pursuing back surgery and potentially knee surgery. She does not yet have a surgeon in mind. She is able to vacuum and go up and down stairs without any difficulties. She also wonders if lower extremity edema is related to her heart. She states that her feet can sometimes be red and swollen at the end of the day but will go down overnight. She does not wear compression stockings because they are hard to put on. She does eat sodium, endorses light salt use. No orthopnea paroxysmal nocturnal dyspnea. No exertional chest pain or pressure. No palpitations. Mother had a myocardial infarction in her 80s, dad lived into his 90s without difficulty. She notes that she followed with Dr. Jackson many years ago, had a heart catheterization which was normal Objective Review of Systems: All systems were reviewed and are noted to be negative unless otherwise stated in HPI. Past Medical History: Diagnosis Date Depression Hypertension Past Surgical History: Procedure Laterality Date DILATION AND CURETTAGE OF UTERUS HEMORRHOID SURGERY SHOULDER SURGERY Family History Problem Relation Age of Onset Heart attack Mother 67 Social History Tobacco Use Smoking Status Never Smokeless Tobacco Never Vaping Use Vaping Status Not on file Allergies: Clindamycin and Sulfa (sulfonamide antibiotics) All of the information has been reviewed at today's visit and modified if necessary. Home Medications: Current Outpatient Medications: ascorbic acid, vitamin C, (VITAMIN C) 100 MG tablet, Take 1 (one) tablet (100 mg total) by mouth daily ., Disp: , Rfl: aspirin 81 MG EC tablet, Take 1 (one) tablet (81 mg total) by mouth daily ., Disp: , Rfl: losartan (COZAAR) 50 MG tablet, , Disp: , Rfl: multivitamin (THERAGRAN) per tablet, Take 1 (one) tablet by mouth daily ., Disp: , Rfl: multivitamin with minerals (HAIR,SKIN AND NAILS ORAL), Take by mouth ., Disp: , Rfl: tolterodine (DETROL LA) 2 MG 24 hr capsule, Take 1 (one) capsule (2 mg total) by mouth daily ., Disp: , Rfl: ZINC ORAL, Take by mouth ., Disp: , Rfl: furosemide (Lasix) 20 MG tablet, Take 1 (one) tablet (20 mg total) by mouth daily as needed ., Disp: 30 tablet, Rfl: 11 Physical Exam: BP 127/83 (BP Location: Left arm, Patient Position: Sitting, BP Cuff Size: X-large Adult) Pulse 67 Ht 5' 2 Wt 77.1 kg (170 lb) SpO2 96% BMI 31.09 kg/m Constitutional: Well appearing female, no acute distress Head: Normocephalic and atraumatic. Eyes: Conjunctivae are normal, no scleral icterus, no corneal arcus Neck: No acanthosis nigricans, no elevated jugular venous distension, no hepatojugular reflux Cardiovascular: Regular rate and rhythm, no murmurs appreciated on today's exam, normal S1 and S2, no rubs or gallops, PMI is midline Pulses: +2 dorsalis pedis pulses bilaterally Musculoskeletal: Normal range of motion. No cyanosis. No peripheral Edema Neurological: AOx3, moving all extremities normally Skin: Skin is warm and dry, normal hair pattern Psychiatric: Normal mood and affect, appropriate conversation Cardiovascular Studies: Ecg 06/21/2022 shows normal sinus rhythm Labs: Basic metabolic panel March 2021 within normal limits documented in this encounter [facility] 06-21-2022 Instructions Anju Fink MD - 06/21/2022 7:59 AM EDT How to Contact your Care Team: Provider: Dr. Anju Fink MD Clinic Nurse: Adeline Luu RN REFILLS: When in need for refills please call your care team or the office at [phone]. Please include medication name, pharmacy name, and specify 30-day or 90-day supply. Please check with your pharmacy within 24 hours of request for your refill. You must follow up as directed to continue current refills. Thank you! Patient Instructions So great to see you today! Please do not hesitate to call me if you have any questions! Here are the things we talked about... Consider starting cholesterol medication Consider water pill to help with swelling in legs documented in this encounter [facility] 02-16-2022 Instructions Geraldine Allred MD - 04/06/2021 6:18 PM EST BONE MINERAL DENSITY PATIENT INSTRUCTIONS Bone mineral density testing measures the amount of calcium in certain parts of your bones. This information determines how strong your bones are. The test is used to detect osteoporosis, a disease in which the bone's mineral content and density are low, increasing a person's risk of fractures. The lumbar spine (lower back) and the hip are the skeletal sites usually examined. For the test, remember that: 1. You cannot take this test if you are . 2. Eat a normal diet on the day of the test. 3. Take your medications as you normally would. 4. DO NOT take calcium supplements (such as Tums) for 24 hours before the test. 5. On the day of the test, leave valuables (jewelry or credit cards) at home. 6. The test should be performed prior to oral, rectal or IV contrast studies, or at least 7 days after any of these studies. For the test, you may be asked to wear a hospital gown. You will lie on your back, on a padded table, in a comfortable position. Generally, you can resume your usual activities immediately. documented in this encounter [facility] 04-06-2021 History of Present illness Narrative This note was created using Nimbulariter. Subjective Brooke Black is a 75 year old female. Patient presents with: Follow Up SUBJECTIVE: Brooke Black is a 75 year old year old lady here today for follow up appointment for review of medical conditions. Recently had appointment to establish with me February. Swelling in feet for a long time. Wants to see Dr. Plata. Feet turn red Wonders if veins or nerves. Feet get red as well as swollen. Decided not to do back surgery 10 years ago. Now has issues with worse spinal stenosis issues based on her description. Plans to go to [facility] who comes up to [place]. Not able to get splinter out. Pustule type lesion over MTP joint of second toe of left foot. Foot is red and warm. DJD hips noted. Reviewed FMH: Mother had from a massive RI. Bladder irritability noted. Was given Myrbetriq but has not tried yet. Discussed Biotin intake. Has Fosamax from 2018 but did not take it. Prior BMD was about 10 years ago. Was worried about potential side effects. No past medical history on file. Current Outpatient Medications Medication Sig no122/iron/folic acid ( MULTI ORAL) Take by mouth. multivitamin with minerals (HAIR,SKIN AND NAILS ORAL) Take by mouth. IBUPROFEN ORAL Take by mouth. multivitamin tablet Take 1 tablet by mouth once daily. losartan potassium (LOSARTAN ORAL) Take 50 mg by mouth once daily. ergocalciferol, vitamin D2, (VITAMIN D2 ORAL) Take by mouth. Vitamin D3 Zinc 50 mg tab Take by mouth. fish oil/borage/flax/om3,6,9 1 (OMEGA 3-6-9 ORAL) Take by mouth. miSOPROStol (CYTOTEC) 200 mcg tablet Take two tablets PO night before procedure and two tablets morning of procedure (Patient not taking: Reported on 03/12/2021 ) biotin 5,000 mcg subl Dissolve under the tongue. aspirin, enteric coated (ASPIRIN, ENTERIC COATED) 81 mg EC tablet Take 81 mg by mouth once daily. Ascorbic Acid (VITAMIN C) 100 mg tablet Take 100 mg by mouth once daily. cyclobenzaprine (FLEXERIL) 10 mg tablet Take by mouth three times daily. (Patient not taking: Reported on 04/06/2021 ) No current facility-administered medications for this visit. Review of Systems Objective BP 138/88 Pulse 82 Wt 74.4 kg (164 lb) BMI 31.50 kg/m Last 5 Encounter BP Readings: Date: BP: 04/06/2021 138/88 03/12/2021 154/90 02/04/2021 130/82 01/24/2021 148/82 03/12/2012 110/80 Last 5 Encounter Wt Readings: Date: Wt: 04/06/2021 74.4 kg (164 lb) 03/12/2021 73 kg (161 lb) 02/04/2021 73 kg (161 lb) 01/24/2021 73 kg (161 lb) 03/12/2012 78.5 kg (173 lb) Physical Exam Musculoskeletal: Right lower leg: Edema present. Left lower leg: Edema present. Feet: Left foot: Skin integrity: Erythema and warmth present. Comments: Tapes the second and third left toes because of a torn tendon in foot. Pustule plantar side left foot where had splinter. Left foot more swollen than right. Component Latest Ref Rng & Units 03/31/2021 Glucose 74 - 99 mg/dL 85 BUN 7 - 21 mg/dL 15 Creatinine 0.58 - 0.96 mg/dL 0.68 Sodium 136 - 144 mmol/L 141 Potassium 3.7 - 5.1 mmol/L 4.1 Chloride 97 - 105 mmol/L 107 (H) CO2 22 - 30 mmol/L 27 Anion Gap 9 - 18 mmol/L 7 (L) Calcium 8.5 - 10.2 mg/dL 10.1 eGFR- >60 eGFR-All Other Races . >60 WBC 3.70 - 11.00 k/uL 5.81 RBC 3.90 - 5.20 m/uL 4.76 Hemoglobin 11.5 - 15.5 g/dL 14.0 Hematocrit 36.0 - 46.0 % 42.9 MCV 80.0 - 100.0 fL 90.1 MCH 26.0 - 34.0 pG 29.4 MCHC 30.5 - 36.0 g/dL 32.6 RDW-CV 11.5 - 15.0 % 12.8 Platelet Count 150 - 400 k/uL Platelets Clumped, Estimate Low MPV 9.0 - 12.7 fL Unable to report Absolute nRBC <0.01 k/uL <0.01 Hemoglobin A1C 4.3 - 5.6 % 5.5 Estimated Average Glucose mg/dL 111 Assessment and Plan Encounter Diagnosis ICD-10-CM 1. Cellulitis and abscess of foot L03.119 L02.619 left foot; noted splinter than thinks part left behind 2. Primary osteoarthritis of both hips M16.0 3. Asymptomatic postmenopausal status Z78.0 DXA-AXIAL SKELETON 4. Bilateral leg edema R60.0 CONSULT TO VASCULAR SURGERY Chronic swelling in legs; worse on left even prior to having current issues with infection in foot ASSESSMENT/PLAN: 1. Cellulitis and abscess of foot - ICD9: 682.7, ICD10: L03.119, L02.619 (primary diagnosis) - antibiotic as discussed. Further evaluation and treatment as indicated. Refer to surgeon as indicated (probably podiatry) 2. Primary osteoarthritis of both hips - ICD9: 715.15, ICD10: M16.0 Further evaluation and treatment as indicated. 3. Asymptomatic postmenopausal status - ICD9: V49.81, ICD10: Z78.0 Treatment as discussed - DXA-AXIAL SKELETON 4. Bilateral leg edema - ICD9: 782.3, ICD10: R60.0 Further evaluation and treatment as indicated. - CONSULT TO VASCULAR SURGERY Geraldine Allred MD documented in this encounter [facility] 03-17-2021 History of Present illness Narrative [facility] DAILY TREATMENT NOTE Today's Date 03/17/2021 Patient Name: Brooke Black Date of : 1945 Current Visit #: 7 Authorized Visits: 199 Case Name: Left Hip Pain History: Pre-Treatment Pain Scale: Pt was unable to assess pain level at this time, states that it Symptoms: stabilized Functional Diagnosis: 1. Left hip pain Clinical Information: Subjective: Pt reports she is less sore than LV Objective 1 Pt reports she is emaghan to amb 30 min but it's difficulty and she requires an AD 2 Pt reports she is able to sit an hour without pain but much longer than that and she has pain 3 Pt reports and demos increased awareness of posture 4 Pt demos 3+/5 gross L hip strength 5 Pt demos 95 degrees active hip flexion 6 Pt demos greater than 25 degrees abd 7 FOTO score = 44 8 Pt reports low compliance with HEP Treatments: Physical Therapy Exercise Log - 03/17/21 0914 OTHER Precautions/Contraindications Supervising PT: Riley Notes visit 6 925- Therapeutic Exercise (29704) Intervention sci fit 5' lv 3 Parameters seated HS stretch - 20 sec x3 Intervention supine piriformis stretches - 20 sec x3 Parameters LTR - 10 sec x10 - pt unable to complete d/t increased pain Intervention PPTs x10 - pt unable to complete d/t increased pain Parameters abd marching x20 alt. Intervention seated add ball squeeze and RTB abd x10 Goals: Physical Therapy Ortho Goals: MOBILITY: Patient will be able to ambulate for 30 minutes in community without difficulty in 4 weeks. CHANGING MAINTAINING POSITON: Patient will be able to sit for 1 hour without pain in 4 weeks IMPAIRMENT: Patient will demonstrate improved postural awareness in PT sessions to facilitate mechanical alignment and function in 3 weeks. IMPAIRMENT: Improve MMT of Left Hip IR from 3+/5 to at least 4/5 in 4 weeks IMPAIRMENT: Improve AROM of Left Hip Flexion from 88 degrees to 100 degrees in 4 weeks. IMPAIRMENT: Improve AROM of Left Hip Abduction from 10 degrees to 25 degrees in 4 weeks. OTHER: Patient will increase FOTO score from 43 to at least 50 to show MDC/MCII and expected functional outcome in 4 weeks. OTHER: Patient will be able to properly demonstrate independence with HEP in 1 week. Patient Education: Verbal HEP with patient verbalized understanding. Post-Treatment Pain Scale: Assessment: Patient had an expected response to treatment. Skilled Intervention demonstrated by modifications of treatment per exercise log including assessment of patient's response and safety interventions per exercise log. Progress towards goals unexpected due to unstable medical presentation. Plan for Next Visit: Discharge You Harding PTA STATE LICENSE, [id number] documented in this encounter [facility] 03-15-2021 History of Present illness Narrative [facility] DAILY TREATMENT NOTE Today's Date 03/15/2021 Patient Name: Brooke Black Date of : 1945 Current Visit #: 5 Authorized Visits: 199 Case Name: Left Hip Pain History: Pre-Treatment Pain Scale: 2 Symptoms: unchanged Functional Diagnosis: 1. Left hip pain Clinical Information: Subjective: Pt denies change in med hx. She reports generalized aching pain in the LEs as well as fatigue and weakness in the LEs. Objective Pt could not tolerate supine therex this date. She reported increased pain from lying on such a firm surface. We spent a decent amount of time reviewing radiology reports from a new Physician she saw and discussed following up with a new orthopedic surgeon as Dr. Burt has retired. Treatments: Physical Therapy Exercise Log - 03/15/21 0927 OTHER Precautions/Contraindications Supervising PT: Riley Notes visit 5: 9:27 - 10:05 Therapeutic Exercise (56455) Intervention sci fit 5' lv 3 Parameters seated HS stretch - 20 sec x3 Intervention supine piriformis stretches - 20 sec x3 Parameters LTR - 10 sec x10 - pt unable to complete d/t increased pain Intervention PPTs x10 - pt unable to complete d/t increased pain Parameters abd marching x20 alt. Intervention seated add ball squeeze and RTB abd x10 Parameters -- Intervention -- Parameters -- PT Treatment Times Therex Total Time 25 Direct Treatment Time 25 Total Treatment Time 38 Goals: Physical Therapy Ortho Goals: MOBILITY: Patient will be able to ambulate for 30 minutes in community without difficulty in 4 weeks. CHANGING MAINTAINING POSITON: Patient will be able to sit for 1 hour without pain in 4 weeks IMPAIRMENT: Patient will demonstrate improved postural awareness in PT sessions to facilitate mechanical alignment and function in 3 weeks. IMPAIRMENT: Improve MMT of Left Hip IR from 3+/5 to at least 4/5 in 4 weeks IMPAIRMENT: Improve AROM of Left Hip Flexion from 88 degrees to 100 degrees in 4 weeks. IMPAIRMENT: Improve AROM of Left Hip Abduction from 10 degrees to 25 degrees in 4 weeks. OTHER: Patient will increase FOTO score from 43 to at least 50 to show MDC/MCII and expected functional outcome in 4 weeks. OTHER: Patient will be able to properly demonstrate independence with HEP in 1 week. Patient Education: Pain Management with patient verbalized understanding. Post-Treatment Pain Scale: 5 Assessment: Patient had an unexpected response to treatment due to significant increase in pain while lying supine. Skilled Intervention demonstrated by modifications of treatment per exercise log including decreased volume and safety interventions per exercise log. Progress towards goals unexpected due to unstable medical presentation. Plan for Next Visit: Discharge Harmeet Dixon PT State License, [id number] documented in this encounter [facility] 03-10-2021 History of Present illness Narrative [facility] DAILY TREATMENT NOTE Today's Date 03/10/2021 Patient Name: Brooke Black Date of : 1945 Current Visit #: 5 Authorized Visits: 199 Case Name: Left Hip Pain History: Pre-Treatment Pain Scale: 6 Symptoms: stabilized Functional Diagnosis: 1. Left hip pain Clinical Information: Subjective: Pt reports avg sx's coming in today, some extra soreness after LV. Pt states she was ascending stairs over the weekend and heard and audible crack, she was concerned with having torn a muscle. No bruising noted or change in function observed Objective Reviewed muscle anatomy and function, reviewed HEP Treatments: Physical Therapy Exercise Log - 03/10/21 1228 OTHER Precautions/Contraindications Supervising PT: Riley Notes visit 3 [phone] Therapeutic Exercise (59198) Intervention progress core/pelvic stability on plinth, progress standing therex as tolerated Parameters sci fit 5' lv 2 Intervention seated HS stretch - 20 sec x5 Parameters LTR - 10 sec x10 Intervention abd bracing x10 Parameters SKTC and piriformis stretches - 20 sec x5 Intervention PPTs x10 Parameters SLR x10 Intervention sidelying clamshells x20 Parameters add ball squeeze x20, abd RTB PT Treatment Times Therex Total Time 38 Direct Treatment Time 38 Total Treatment Time 39 Goals: Physical Therapy Ortho Goals: MOBILITY: Patient will be able to ambulate for 30 minutes in community without difficulty in 4 weeks. CHANGING MAINTAINING POSITON: Patient will be able to sit for 1 hour without pain in 4 weeks IMPAIRMENT: Patient will demonstrate improved postural awareness in PT sessions to facilitate mechanical alignment and function in 3 weeks. IMPAIRMENT: Improve MMT of Left Hip IR from 3+/5 to at least 4/5 in 4 weeks IMPAIRMENT: Improve AROM of Left Hip Flexion from 88 degrees to 100 degrees in 4 weeks. IMPAIRMENT: Improve AROM of Left Hip Abduction from 10 degrees to 25 degrees in 4 weeks. OTHER: Patient will increase FOTO score from 43 to at least 50 to show MDC/MCII and expected functional outcome in 4 weeks. OTHER: Patient will be able to properly demonstrate independence with HEP in 1 week. Patient Education: Verbal HEP with patient verbalized understanding. Post-Treatment Pain Scale: 6 Assessment: Patient had an expected response to treatment. Skilled Intervention demonstrated by modifications of treatment per exercise log including assessment of patient's response and safety interventions per exercise log. Progress towards goals as expected. Plan for Next Visit: Treatment Visit with focus on progressing as tolerated You Harding PTA STATE LICENSE, [id number] documented in this encounter [facility] 03-08-2021 History of Present illness Narrative [facility] DAILY TREATMENT NOTE Today's Date 03/08/2021 Patient Name: Brooke Black Date of : 1945 Current Visit #: 4 Authorized Visits: 199 Case Name: Left Hip Pain History: Pre-Treatment Pain Scale: 2 Symptoms: stabilized Functional Diagnosis: 1. Left hip pain Clinical Information: Subjective: her hip is still hurting pretty bad at times. She is compliant with HEP. Objective Quick fatigue with PRE's. Ambulates with cane for balance. Treatments: Physical Therapy Exercise Log - 03/08/21 1054 OTHER Precautions/Contraindications Supervising PT: Riley Notes visit 2: 8:38 - 9:20 Therapeutic Exercise ([id number]) Intervention progress core/pelvic stability on plinth, progress standing therex as tolerated Parameters sci fit 5' lv 2 Intervention seated HS stretch - 20 sec x5 Parameters LTR - 10 sec x10 Intervention abd bracing x10 Parameters SKTC and piriformis stretches - 20 sec x5 Intervention PPTs x10 Parameters SLR x10 Intervention sidelying clamshells x20 Parameters add ball squeeze x20, abd RTB PT Treatment Times Therex Total Time 35 Direct Treatment Time 35 Total Treatment Time 35 Goals: Physical Therapy Ortho Goals: MOBILITY: Patient will be able to ambulate for 30 minutes in community without difficulty in 4 weeks. CHANGING MAINTAINING POSITON: Patient will be able to sit for 1 hour without pain in 4 weeks IMPAIRMENT: Patient will demonstrate improved postural awareness in PT sessions to facilitate mechanical alignment and function in 3 weeks. IMPAIRMENT: Improve MMT of Left Hip IR from 3+/5 to at least 4/5 in 4 weeks IMPAIRMENT: Improve AROM of Left Hip Flexion from 88 degrees to 100 degrees in 4 weeks. IMPAIRMENT: Improve AROM of Left Hip Abduction from 10 degrees to 25 degrees in 4 weeks. OTHER: Patient will increase FOTO score from 43 to at least 50 to show MDC/MCII and expected functional outcome in 4 weeks. OTHER: Patient will be able to properly demonstrate independence with HEP in 1 week. Patient Education: Quality of movement with patient demonstrated understanding. Post-Treatment Pain Scale: 2 Assessment: Patient had an expected response to treatment. Skilled Intervention demonstrated by modifications of treatment per exercise log including increased intensity and safety interventions per exercise log. Progress towards goals as expected. Plan for Next Visit: Treatment Visit with focus on strengthening Sia Silver PTA STATE LICENSE, [id number] documented in this encounter [facility] 03-03-2021 History of Present illness Narrative [facility] DAILY TREATMENT NOTE Today's Date 03/03/2021 Patient Name: Brooke Black Date of : 1945 Current Visit #: 3 Authorized Visits: 199 Case Name: Left Hip Pain History: Pre-Treatment Pain Scale: 0 Symptoms: stabilized Functional Diagnosis: 1. Left hip pain Clinical Information: Subjective: Pt reports no hip pain but stated she has some pain in Low back 09/28 today. Compliant with HEP Objective Treatments: Physical Therapy Exercise Log - 03/03/21 0838 OTHER Precautions/Contraindications Supervising PT: Riley Notes visit 2: 8:38 - 9:20 Therapeutic Exercise (67194) Intervention progress core/pelvic stability on plinth, progress standing therex as tolerated Parameters sci fit 5' lv 2 Intervention seated HS stretch - 20 sec x5 Parameters LTR - 10 sec x10 Intervention abd bracing x10 Parameters SKTC and piriformis stretches - 20 sec x5 Intervention PPTs x10 Parameters SLR x10 Intervention sidelying clamshells x20 Parameters add ball squeeze x20, abd RTB PT Treatment Times Therex Total Time 42 Direct Treatment Time 42 Total Treatment Time 42 Goals: Physical Therapy Ortho Goals: MOBILITY: Patient will be able to ambulate for 30 minutes in community without difficulty in 4 weeks. CHANGING MAINTAINING POSITON: Patient will be able to sit for 1 hour without pain in 4 weeks IMPAIRMENT: Patient will demonstrate improved postural awareness in PT sessions to facilitate mechanical alignment and function in 3 weeks. IMPAIRMENT: Improve MMT of Left Hip IR from 3+/5 to at least 4/5 in 4 weeks IMPAIRMENT: Improve AROM of Left Hip Flexion from 88 degrees to 100 degrees in 4 weeks. IMPAIRMENT: Improve AROM of Left Hip Abduction from 10 degrees to 25 degrees in 4 weeks. OTHER: Patient will increase FOTO score from 43 to at least 50 to show MDC/MCII and expected functional outcome in 4 weeks. OTHER: Patient will be able to properly demonstrate independence with HEP in 1 week. Patient Education: Quality of movement with patient demonstrated understanding. Post-Treatment Pain Scale: 0 Assessment: Patient had an expected response to treatment. Skilled Intervention demonstrated by modifications of treatment per exercise log including increased load and safety interventions per exercise log. Progress towards goals as expected. Plan for Next Visit: Treatment Visit with focus on hip strengthening Kelvin Cruz PTA STATE LICENSE, [id number] documented in this encounter [facility] 03-01-2021 History of Present illness Narrative [facility] DAILY TREATMENT NOTE Today's Date 03/01/2021 Patient Name: Brooke Black Date of : 1945 Current Visit #: 2 Authorized Visits: 199 Case Name: Left Hip Pain History: Pre-Treatment Pain Scale: 4 Symptoms: stabilized Functional Diagnosis: 1. Left hip pain Clinical Information: Subjective: she needs to know if she's doing the exercises correctly. Objective Reviewed HEP with good understanding of pelvic neutral. Treatments: Physical Therapy Exercise Log - 03/01/21 1137 OTHER Precautions/Contraindications Supervising PT: Riley Notes visit 1: 9:55-10:40 Therapeutic Exercise (90058) Intervention provided written HEP handouts consisting of the following: Parameters seated HS stretch x5 Intervention PPTs x10 Parameters abd bracing x10 Intervention SKTC and piriformis stretches x5 Parameters SLR x10 Intervention sidelying clamshells x20 Parameters add ball squeeze x20 Intervention scifit warm up, progress core/pelvic stability on plinth, progress standing therex as tolerated Parameters sci fit 5' lv 1 PT Treatment Times Therex Total Time 40 Direct Treatment Time 40 Total Treatment Time 40 Goals: Physical Therapy Ortho Goals: MOBILITY: Patient will be able to ambulate for 30 minutes in community without difficulty in 4 weeks. CHANGING MAINTAINING POSITON: Patient will be able to sit for 1 hour without pain in 4 weeks IMPAIRMENT: Patient will demonstrate improved postural awareness in PT sessions to facilitate mechanical alignment and function in 3 weeks. IMPAIRMENT: Improve MMT of Left Hip IR from 3+/5 to at least 4/5 in 4 weeks IMPAIRMENT: Improve AROM of Left Hip Flexion from 88 degrees to 100 degrees in 4 weeks. IMPAIRMENT: Improve AROM of Left Hip Abduction from 10 degrees to 25 degrees in 4 weeks. OTHER: Patient will increase FOTO score from 43 to at least 50 to show MDC/MCII and expected functional outcome in 4 weeks. OTHER: Patient will be able to properly demonstrate independence with HEP in 1 week. Patient Education: Quality of movement with patient demonstrated understanding. Post-Treatment Pain Scale: 4 Assessment: Patient had an expected response to treatment. Skilled Intervention demonstrated by modifications of treatment per exercise log including increased intensity and safety interventions per exercise log. Progress towards goals as expected. Plan for Next Visit: Treatment Visit with focus on stretching Sia Silver PTA STATE LICENSE, [id number] documented in this encounter [facility] 02-22-2021 History of Present illness Narrative [facility] Evaluation Today's Date 02/22/2021 Patient Name: Brooke Black Date of : 1945 Case Name: Left Hip Pain Functional Diagnosis: 1. Left hip pain Clinical Information: Subjective Referring Diagnosis: Left Hip Pain History of Present Illness Subjective History: Pt reports c/o chronic left hip and low back pain. She states she was ascending her basement stairs when she felt and heard something pop in her posterolateral hip. She states she did not fall and did not experience sudden, sharp pain. She is currently experiencing low back and left buttock pain. She also reports numbness/tingling in the left lower leg and foot. She states she has been reliant on her cane for support when standing and walking. She is also following up with a Neurologist for her lumbar spine. Previous Imaging: X-ray and MRI Pain Scale: Pain location: lumbar spine Average Pain: 4/10 Pain at highest: 8/10 Aggravating factors: prolonged sitting and walking, housekeeping tasks Easing factors: static standing, Ibuprofen prn Personal Goals: Decrease pain Improve activity tolerance Functional Mobility Status Functional Limitations: limited mobility and sitting Current Mobility Status: Community: cane and independent Current Activity Level: low active Social Support: Scientologist, social, or cultural considerations to be made aware of before starting treatment: No Home Environment: Current Home Environment: Setup: multi-level house Additional comments: negotiates stairs non-reciprocally favoring the right LEActivities of Daily Living: independent with allInstrumental Activities of Daily Living: to be assessed Sleep Assessment Sleep disturbance: Sleep Disturbance Red Flags: None Comments: Barriers to Care: None Scientologist, social, or cultural considerations to be made aware of before starting treatment: No Hip Left Hip Range of Motion: Flexion Active: 88 (standing) Extension Active: 12 (standing) Abduction Active: 10 (standing) Adduction Active: 12 (standing) IR Active: 12 (seated) ER Active: 40 (seated) Muscle Strength: Flexion: 4+ Extension: 4+ Abduction: 5 Adduction: 5 IR: 3+ ER: 4+ Other Sensation: decreased FOTO: 43 Treatments: Physical Therapy Exercise Log - 02/22/21 1101 OTHER Precautions/Contraindications Supervising PT: Riley Notes Eval: 10:30 - 11:22 Therapeutic Exercise (43313) Intervention provided written HEP handouts consisting of the following: Parameters seated HS stretch Intervention PPTs Parameters abd bracing Intervention SKTC and piriformis stretches Parameters SLR Intervention sidelying clamshells Parameters add ball squeeze PT Treatment Times Total Treatment Time 52 Goals: Physical Therapy Ortho Goals: MOBILITY: Patient will be able to ambulate for 30 minutes in community without difficulty in 4 weeks. CHANGING MAINTAINING POSITON: Patient will be able to sit for 1 hour without pain in 4 weeks IMPAIRMENT: Patient will demonstrate improved postural awareness in PT sessions to facilitate mechanical alignment and function in 3 weeks. IMPAIRMENT: Improve MMT of Left Hip IR from 3+/5 to at least 4/5 in 4 weeks IMPAIRMENT: Improve AROM of Left Hip Flexion from 88 degrees to 100 degrees in 4 weeks. IMPAIRMENT: Improve AROM of Left Hip Abduction from 10 degrees to 25 degrees in 4 weeks. OTHER: Patient will increase FOTO score from 43 to at least 50 to show MDC/MCII and expected functional outcome in 4 weeks. OTHER: Patient will be able to properly demonstrate independence with HEP in 1 week. CPT Code 78368 Low 50542 Moderate 25983 High History 0 1-2 3+ Comorbidities: depression and HTN, Personal factors: chronicity or severity of the current condition Examination of body systems (elements of body structures & functions, activity limitations, and/or participation restrictions) 1-2 elements 3+ elements 4+ elements See below clinical impression Clinical Presentation Stable Evolving Unstable As evidenced by reproduction of or changes in symptoms with certain movements and reports of fluctuating symptoms over time Decision Making Low (FOTO >/= 69) Moderate (FOTO 34 - 68) High (FOTO </= 33) FOTO score= 43 Pt is a 75 y.o. female who presents to PT services with c/o low back and left buttock. Upon assessment, pt has been found with the following impairments: impaired posture, decreased ROM, decreased strength, impaired dynamic balance, antalgic gait, decreased stability and pain. The documented impairments result in the following functional limitations: ADLs/IADLs, oenologist, functional mobility, walking, stairs, recreational activities and quality of life. The pt would benefit from skilled PT services focused on the above listed impairments and limitations in order to safely progress pt to their desired level of function. Pt to be discharged from OP PT services if/when goals are met, if they fail to make progress with conservative management in PT, if their level of progress plateaus, or if they do not maintain compliance with attendance or HEP. At this time, it is my clinical judgment that services are medically necessary. Plan of Care Frequency of Visits: 2 times per week Duration: 4 weeks Interventions: Therapeutic Exercise (81941), Neuromuscular Re-Education (01553), Manual Therapy (90338), Therapeutic/ Functional Activities (74899) and Gait Training (90117) Rehab Potential: fair Suicide Screen Signs and Symptoms of Abuse/Neglect: No Actions Taken: No Suicide Risk: Does the patient feel like ending their life today?No Actions Taken: No Patient Education Provided Pt was educated on the benefits of therapy and importance of compliance with sessions and HEP for rehabilitation. Pt was also educated on treatment diagnosis, POC, and frequency/duration of treatment. 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 Harmeet Dixon PT State License, [id number] documented in this encounter [facility] Left [facility]- Primary Pain in joint, pelvic region and thigh [facility] Diagnosis Left hip pain- Primary Pain in joint, pelvic region and thigh [facility] Diagnosis Left hip pain- Primary Pain in joint, pelvic region and thigh [facility] Diagnosis Left hip pain- Primary Pain in joint, pelvic region and thigh [facility] Diagnosis Left hip pain- Primary Pain in joint, pelvic region and thigh [facility] Diagnosis Left hip pain- Primary Pain in joint, pelvic region and thigh [facility] Diagnosis Cellulitis and abscess of foot- Primary Cellulitis and abscess of foot, except toes Primary osteoarthritis of both hips Primary localized osteoarthrosis, pelvic region and thigh Asymptomatic postmenopausal status Bilateral leg edema Edema documented in this encounter [facility] note* Diagnosis Lower extremity edema- Primary Edema Cardiovascular risk assessment Unspecified peripheral vascular disease documented in this encounter [facility]* Name Dates Details Patient Instructions Indication:Nonsmoker Start:06-Dec-2020 Instruction Type:Provider Instructions for Treatment How to Access Health Informa tion Online using Patient Portal and [employer] Apps Indication:Nonsmoker Start:06-Dec-2020 Instruction Type:Patient Education How to Access Health Informa tion Online using Patient Portal and [employer] Apps Indication:Nonsmoker Start:12-Nov-2020 Instruction Type:Patient Education Patient Instructions Indication:Nonsmoker Start:12-Nov-2020 Instruction Type:Provider Instructions for Treatment How to Access Health Informa tion Online using Patient Portal and [employer] Apps Indication:Nonsmoker Start:05-Nov-2020 Instruction Type:Patient Education Patient Instructions Indication:Nonsmoker Start:05-Nov-2020 Instruction Type:Provider Instructions for Treatment Patient Instructions Indication:BMI 31.0-31.9,adult Start:02-Nov-2020 Instruction Type:Provider Instructions for Treatment How to Access Health Informa tion Online using Patient Portal and [employer] Apps Indication:BMI 31.0-31.9,adult Start:02-Nov-2020 Instruction Type:Patient Education Patient Instructions Indication:BMI 31.0-31.9,adult Start:15-Mar-2020 Instruction Type:Provider Instructions for Treatment How to Access Health Informa tion Online using Patient Portal and [employer] Apps Indication:BMI 31.0-31.9,adult Start:15-Mar-2020 Instruction Type:Patient Education Patient Instructions Indication:BMI 32.0-32.9,adult Start:02-Mar-2020 Instruction Type:Provider Instructions for Treatment How to Access Health Informa tion Online using Patient Portal and [employer] Apps Indication:BMI 32.0-32.9,adult Start:02-Mar-2020 Instruction Type:Patient Education How to access health informa tion online Indication:Nonsmoker Start:19-Nov-2019 Instruction Type:Patient Education How to access health informa tion online - Detail Indication:Nonsmoker Start:19-Nov-2019 Instruction Type:Patient Education Patient Instructions Indication:Nonsmoker Start:19-Nov-2019 Instruction Type:Provider Instructions for Treatment How to access health informa tion online Indication:Nonsmoker Start:19-Aug-2019 Instruction Type:Patient Education How to access health informa tion online - Detail Indication:Nonsmoker Start:19-Aug-2019 Instruction Type:Patient Education Patient Instructions Indication:Nonsmoker Start:19-Aug-2019 Instruction Type:Provider Instructions for Treatment How to access health informa tion online Indication:Nonsmoker Start:19-May-2019 Instruction Type:Patient Education How to access health informa tion online - Detail Indication:Nonsmoker Start:19-May-2019 Instruction Type:Patient Education Patient Instructions Indication:Nonsmoker Start:19-May-2019 Instruction Type:Provider Instructions for Treatment How to access health informa tion online Indication:Nonsmoker Start:06-Dec-2017 Instruction Type:Patient Education How to access health informa tion online - Detail Indication:Nonsmoker Start:06-Dec-2017 Instruction Type:Patient Education Patient Instructions Indication:Nonsmoker Start:06-Dec-2017 Instruction Type:Provider Instructions for Treatment DISCONTINUED - LIPID PANEL ( [id number]) Indication:Hypercholesteremia Start:31-Oct-2017 Instruction Type:Patient Education How to access health informa tion online Indication:Nonsmoker Start:31-Oct-2017 Instruction Type:Patient Education How to access health informa tion online - Detail Indication:Nonsmoker Start:31-Oct-2017 Instruction Type:Patient Education Patient Instructions Indication:Nonsmoker Start:31-Oct-2017 Instruction Type:Provider Instructions for Treatment How to access health informa tion online Indication:Osteoporosis Start:31-Aug-2017 Instruction Type:Patient Education How to access health informa tion online - Detail Indication:Osteoporosis Start:31-Aug-2017 Instruction Type:Patient Education Patient Instructions Indication:Osteoporosis Start:31-Aug-2017 Instruction Type:Provider Instructions for Treatment How to access health informa tion online Indication:Hypercholesteremia Start:25-Jul-2017 Instruction Type:Patient Education How to access health informa tion online - Detail Indication:Hypercholesteremia Start:25-Jul-2017 Instruction Type:Patient Education Patient Instructions Indication:Hypercholesteremia Start:25-Jul-2017 Instruction Type:Provider Instructions for Treatment How to access health informa tion online Indication:Hypertension Start:20-Apr-2017 Instruction Type:Patient Education How to access health informa tion online - Detail Indication:Hypertension Start:20-Apr-2017 Instruction Type:Patient Education Patient Instructions Indication:Hypertension Start:20-Apr-2017 Instruction Type:Provider Instructions for Treatment How to access health informa tion online Indication:Hypercholesteremia Start:13-Nov-2016 Instruction Type:Patient Education How to access health informa tion online - Detail Indication:Hypercholesteremia Start:13-Nov-2016 Instruction Type:Patient Education Patient Instructions Indication:Hypercholesteremia Start:13-Nov-2016 Instruction Type:Provider Instructions for Treatment How to access health informa tion online Indication:BMI 31.0-31.9,adult Start:10-Oct-2016 Instruction Type:Patient Education How to access health informa tion online - Detail Indication:BMI 31.0-31.9,adult Start:10-Oct-2016 Instruction Type:Patient Education Patient Instructions Indication:BMI 31.0-31.9,adult Start:10-Oct-2016 Instruction Type:Provider Instructions for Treatment How to access health informa tion online Indication:Hypertension Start:27-Sep-2016 Instruction Type:Patient Education How to access health informa tion online - Detail Indication:Hypertension Start:27-Sep-2016 Instruction Type:Patient Education Patient Instructions Indication:Hypertension Start:27-Sep-2016 Instruction Type:Provider Instructions for Treatment [facility]; [facility] Work Phone: Instructions* Name Dates Details Patient Instructions Indication:Nonsmoker Start:06-Dec-2020 Instruction Type:Provider Instructions for Treatment How to Access Health Informa tion Online using Patient Portal and [employer] Apps Indication:Nonsmoker Start:06-Dec-2020 Instruction Type:Patient Education How to Access Health Informa tion Online using Patient Portal and [employer] Apps Indication:Nonsmoker Start:12-Nov-2020 Instruction Type:Patient Education Patient Instructions Indication:Nonsmoker Start:12-Nov-2020 Instruction Type:Provider Instructions for Treatment How to Access Health Informa tion Online using Patient Portal and [employer] Apps Indication:Nonsmoker Start:05-Nov-2020 Instruction Type:Patient Education Patient Instructions Indication:Nonsmoker Start:05-Nov-2020 Instruction Type:Provider Instructions for Treatment Patient Instructions Indication:BMI 31.0-31.9,adult Start:02-Nov-2020 Instruction Type:Provider Instructions for Treatment How to Access Health Informa tion Online using Patient Portal and [employer] Apps Indication:BMI 31.0-31.9,adult Start:02-Nov-2020 Instruction Type:Patient Education Patient Instructions Indication:BMI 31.0-31.9,adult Start:15-Mar-2020 Instruction Type:Provider Instructions for Treatment How to Access Health Informa tion Online using Patient Portal and [employer] Apps Indication:BMI 31.0-31.9,adult Start:15-Mar-2020 Instruction Type:Patient Education Patient Instructions Indication:BMI 32.0-32.9,adult Start:02-Mar-2020 Instruction Type:Provider Instructions for Treatment How to Access Health Informa tion Online using Patient Portal and [employer] Apps Indication:BMI 32.0-32.9,adult Start:02-Mar-2020 Instruction Type:Patient Education How to access health informa tion online Indication:Nonsmoker Start:19-Nov-2019 Instruction Type:Patient Education How to access health informa tion online - Detail Indication:Nonsmoker Start:19-Nov-2019 Instruction Type:Patient Education Patient Instructions Indication:Nonsmoker Start:19-Nov-2019 Instruction Type:Provider Instructions for Treatment How to access health informa tion online Indication:Nonsmoker Start:19-Aug-2019 Instruction Type:Patient Education How to access health informa tion online - Detail Indication:Nonsmoker Start:19-Aug-2019 Instruction Type:Patient Education Patient Instructions Indication:Nonsmoker Start:19-Aug-2019 Instruction Type:Provider Instructions for Treatment How to access health informa tion online Indication:Nonsmoker Start:19-May-2019 Instruction Type:Patient Education How to access health informa tion online - Detail Indication:Nonsmoker Start:19-May-2019 Instruction Type:Patient Education Patient Instructions Indication:Nonsmoker Start:19-May-2019 Instruction Type:Provider Instructions for Treatment How to access health informa tion online Indication:Nonsmoker Start:06-Dec-2017 Instruction Type:Patient Education How to access health informa tion online - Detail Indication:Nonsmoker Start:06-Dec-2017 Instruction Type:Patient Education Patient Instructions Indication:Nonsmoker Start:06-Dec-2017 Instruction Type:Provider Instructions for Treatment DISCONTINUED - LIPID PANEL ( [id number]) Indication:Hypercholesteremia Start:31-Oct-2017 Instruction Type:Patient Education How to access health informa tion online Indication:Nonsmoker Start:31-Oct-2017 Instruction Type:Patient Education How to access health informa tion online - Detail Indication:Nonsmoker Start:31-Oct-2017 Instruction Type:Patient Education Patient Instructions Indication:Nonsmoker Start:31-Oct-2017 Instruction Type:Provider Instructions for Treatment How to access health informa tion online Indication:Osteoporosis Start:31-Aug-2017 Instruction Type:Patient Education How to access health informa tion online - Detail Indication:Osteoporosis Start:31-Aug-2017 Instruction Type:Patient Education Patient Instructions Indication:Osteoporosis Start:31-Aug-2017 Instruction Type:Provider Instructions for Treatment How to access health informa tion online Indication:Hypercholesteremia Start:25-Jul-2017 Instruction Type:Patient Education How to access health informa tion online - Detail Indication:Hypercholesteremia Start:25-Jul-2017 Instruction Type:Patient Education Patient Instructions Indication:Hypercholesteremia Start:25-Jul-2017 Instruction Type:Provider Instructions for Treatment How to access health informa tion online Indication:Hypertension Start:20-Apr-2017 Instruction Type:Patient Education How to access health informa tion online - Detail Indication:Hypertension Start:20-Apr-2017 Instruction Type:Patient Education Patient Instructions Indication:Hypertension Start:20-Apr-2017 Instruction Type:Provider Instructions for Treatment How to access health informa tion online Indication:Hypercholesteremia Start:13-Nov-2016 Instruction Type:Patient Education How to access health informa tion online - Detail Indication:Hypercholesteremia Start:13-Nov-2016 Instruction Type:Patient Education Patient Instructions Indication:Hypercholesteremia Start:13-Nov-2016 Instruction Type:Provider Instructions for Treatment How to access health informa tion online Indication:BMI 31.0-31.9,adult Start:10-Oct-2016 Instruction Type:Patient Education How to access health informa tion online - Detail Indication:BMI 31.0-31.9,adult Start:10-Oct-2016 Instruction Type:Patient Education Patient Instructions Indication:BMI 31.0-31.9,adult Start:10-Oct-2016 Instruction Type:Provider Instructions for Treatment How to access health informa tion online Indication:Hypertension Start:27-Sep-2016 Instruction Type:Patient Education How to access health informa tion online - Detail Indication:Hypertension Start:27-Sep-2016 Instruction Type:Patient Education Patient Instructions Indication:Hypertension Start:27-Sep-2016 Instruction Type:Provider Instructions for Treatment [facility]; [facility] Work Phone: Instructions* Name Dates Details Patient Instructions Indication:Nonsmoker Start:06-Dec-2020 Instruction Type:Provider Instructions for Treatment How to Access Health Informa tion Online using Patient Portal and [employer] Apps Indication:Nonsmoker Start:06-Dec-2020 Instruction Type:Patient Education How to Access Health Informa tion Online using Patient Portal and [employer] Apps Indication:Nonsmoker Start:12-Nov-2020 Instruction Type:Patient Education Patient Instructions Indication:Nonsmoker Start:12-Nov-2020 Instruction Type:Provider Instructions for Treatment How to Access Health Informa tion Online using Patient Portal and [employer] Apps Indication:Nonsmoker Start:05-Nov-2020 Instruction Type:Patient Education Patient Instructions Indication:Nonsmoker Start:05-Nov-2020 Instruction Type:Provider Instructions for Treatment Patient Instructions Indication:BMI 31.0-31.9,adult Start:02-Nov-2020 Instruction Type:Provider Instructions for Treatment How to Access Health Informa tion Online using Patient Portal and [employer] Apps Indication:BMI 31.0-31.9,adult Start:02-Nov-2020 Instruction Type:Patient Education Patient Instructions Indication:BMI 31.0-31.9,adult Start:15-Mar-2020 Instruction Type:Provider Instructions for Treatment How to Access Health Informa tion Online using Patient Portal and [employer] Apps Indication:BMI 31.0-31.9,adult Start:15-Mar-2020 Instruction Type:Patient Education Patient Instructions Indication:BMI 32.0-32.9,adult Start:02-Mar-2020 Instruction Type:Provider Instructions for Treatment How to Access Health Informa tion Online using Patient Portal and [employer] Apps Indication:BMI 32.0-32.9,adult Start:02-Mar-2020 Instruction Type:Patient Education How to access health informa tion online Indication:Nonsmoker Start:19-Nov-2019 Instruction Type:Patient Education How to access health informa tion online - Detail Indication:Nonsmoker Start:19-Nov-2019 Instruction Type:Patient Education Patient Instructions Indication:Nonsmoker Start:19-Nov-2019 Instruction Type:Provider Instructions for Treatment How to access health informa tion online Indication:Nonsmoker Start:19-Aug-2019 Instruction Type:Patient Education How to access health informa tion online - Detail Indication:Nonsmoker Start:19-Aug-2019 Instruction Type:Patient Education Patient Instructions Indication:Nonsmoker Start:19-Aug-2019 Instruction Type:Provider Instructions for Treatment How to access health informa tion online Indication:Nonsmoker Start:19-May-2019 Instruction Type:Patient Education How to access health informa tion online - Detail Indication:Nonsmoker Start:19-May-2019 Instruction Type:Patient Education Patient Instructions Indication:Nonsmoker Start:19-May-2019 Instruction Type:Provider Instructions for Treatment How to access health informa tion online Indication:Nonsmoker Start:06-Dec-2017 Instruction Type:Patient Education How to access health informa tion online - Detail Indication:Nonsmoker Start:06-Dec-2017 Instruction Type:Patient Education Patient Instructions Indication:Nonsmoker Start:06-Dec-2017 Instruction Type:Provider Instructions for Treatment DISCONTINUED - LIPID PANEL ( [id number]) Indication:Hypercholesteremia Start:31-Oct-2017 Instruction Type:Patient Education How to access health informa tion online Indication:Nonsmoker Start:31-Oct-2017 Instruction Type:Patient Education How to access health informa tion online - Detail Indication:Nonsmoker Start:31-Oct-2017 Instruction Type:Patient Education Patient Instructions Indication:Nonsmoker Start:31-Oct-2017 Instruction Type:Provider Instructions for Treatment How to access health informa tion online Indication:Osteoporosis Start:31-Aug-2017 Instruction Type:Patient Education How to access health informa tion online - Detail Indication:Osteoporosis Start:31-Aug-2017 Instruction Type:Patient Education Patient Instructions Indication:Osteoporosis Start:31-Aug-2017 Instruction Type:Provider Instructions for Treatment How to access health informa tion online Indication:Hypercholesteremia Start:25-Jul-2017 Instruction Type:Patient Education How to access health informa tion online - Detail Indication:Hypercholesteremia Start:25-Jul-2017 Instruction Type:Patient Education Patient Instructions Indication:Hypercholesteremia Start:25-Jul-2017 Instruction Type:Provider Instructions for Treatment How to access health informa tion online Indication:Hypertension Start:20-Apr-2017 Instruction Type:Patient Education How to access health informa tion online - Detail Indication:Hypertension Start:20-Apr-2017 Instruction Type:Patient Education Patient Instructions Indication:Hypertension Start:20-Apr-2017 Instruction Type:Provider Instructions for Treatment How to access health informa tion online Indication:Hypercholesteremia Start:13-Nov-2016 Instruction Type:Patient Education How to access health informa tion online - Detail Indication:Hypercholesteremia Start:13-Nov-2016 Instruction Type:Patient Education Patient Instructions Indication:Hypercholesteremia Start:13-Nov-2016 Instruction Type:Provider Instructions for Treatment How to access health informa tion online Indication:BMI 31.0-31.9,adult Start:10-Oct-2016 Instruction Type:Patient Education How to access health informa tion online - Detail Indication:BMI 31.0-31.9,adult Start:10-Oct-2016 Instruction Type:Patient Education Patient Instructions Indication:BMI 31.0-31.9,adult Start:10-Oct-2016 Instruction Type:Provider Instructions for Treatment How to access health informa tion online Indication:Hypertension Start:27-Sep-2016 Instruction Type:Patient Education How to access health informa tion online - Detail Indication:Hypertension Start:27-Sep-2016 Instruction Type:Patient Education Patient Instructions Indication:Hypertension Start:27-Sep-2016 Instruction Type:Provider Instructions for Treatment [facility]; [facility] Work Phone: Summary Purpose Family History No Family History Records FoundUnknown Family Member Name Dates Details Brother 1 Comments:CVA Status:Active Father Comments:[place] Status:Active Mother Comments:[place], HTN, hypothyroi d Status:Active Unknown Family Member Name Dates Details Brother 1 Comments:CVA Status:Active Father Comments:[place] Status:Active Mother Comments:[place], HTN, hypothyroi d Status:Active Unknown Family Member Name Dates Details Brother 1 Comments:CVA Status:Active Father Comments:[place] Status:Active Mother Comments:[place], HTN, hypothyroi d Status:Active Mother Name Dates Details Family history of cardiac di sorder(V17.49, Z82.49) Status:Active Father Name Dates Details Family history of cardiac di sorder(V17.49, Z82.49) Status:Active Mother Name Dates Details Family history of cardiac di sorder(V17.49, Z82.49) Status:Active Father Name Dates Details Family history of cardiac di sorder(V17.49, Z82.49) Status:Active Mother Name Dates Details Family history of cardiac di sorder(V17.49, Z82.49) Status:Active Father Name Dates Details Family history of cardiac di sorder(V17.49, Z82.49) Status:Active Unknown Family Member Name Dates Details Brother 1 Comments:CVA Status:Active Father Comments:[place] Status:Active Mother Comments:[place], HTN, hypothyroi d Status:Active Unknown Family Member Name Dates Details Brother 1 Comments:CVA Status:Active Father Comments:[place] Status:Active Mother Comments:[place], HTN, hypothyroi d Status:Active Unknown Family Member Name Dates Details Brother 1 Comments:CVA Status:Active Father Comments:[place] Status:Active Mother Comments:[place], HTN, hypothyroi d Status:Active Mother Name Dates Details Family history of cardiac di sorder(V17.49, Z82.49) Status:Active Father Name Dates Details Family history of cardiac di sorder(V17.49, Z82.49) Status:Active Unknown Family Member Name Dates Details Brother 1 Comments:CVA Status:Active Father Comments:[place] Status:Active Mother Comments:[place], HTN, hypothyroi d Status:Active Mother Name Dates Details Family history of cardiac di sorder(V17.49, Z82.49) Status:Active Father Name Dates Details Family history of cardiac di sorder(V17.49, Z82.49) Status:Active Unknown Family Member Name Dates Details Brother 1 Comments:CVA Status:Active Father Comments:[place] Status:Active Mother Comments:[place], HTN, hypothyroi d Status:Active Unknown Family Member Name Dates Details Brother 1 Comments:CVA Status:Active Father Comments:[place] Status:Active Mother Comments:[place], HTN, hypothyroi d Status:Active Unknown Family Member Name Dates Details Brother 1 Comments:CVA Status:Active Father Comments:[place] Status:Active Mother Comments:[place], HTN, hypothyroi d Status:Active Mother Name Dates Details Family history of cardiac di sorder(V17.49, Z82.49) Status:Active Father Name Dates Details Family history of cardiac di sorder(V17.49, Z82.49) Status:Active Unknown Family Member Name Dates Details Brother 1 Comments:CVA Status:Active Father Comments:[place] Status:Active Mother Comments:[place], HTN, hypothyroi d Status:Active Unknown Family Member Name Dates Details Brother 1 Comments:CVA Status:Active Father Comments:[place] Status:Active Mother Comments:[place], HTN, hypothyroi d Status:Active Unknown Family Member Name Dates Details Brother 1 Comments:CVA Status:Active Father Comments:[place] Status:Active Mother Comments:[place], HTN, hypothyroi d Status:Active Advance Directives No Advanced Directives Records FoundDocuments on File Type Date Recorded Patient Kindergartner Expl anation Advance Directives and Livin g Will 12/23/2020 9:13 AM Instructions Name Dates Details Nonsmoker : How to access he alth information online Indication:Nonsmoker Nonsmoker : How to access he alth information online - Detail Indication:Nonsmoker Nonsmoker : Patient Instruct ions Indication:Nonsmoker Hypercholesteremia : DISCONT INUED - LIPID PANEL ([id number]) Indication:Hypercholesteremia Osteoporosis : How to access health information online Indication:Osteoporosis Osteoporosis : How to access health information online - Detail Indication:Osteoporosis Osteoporosis : Patient Instr uctions Indication:Osteoporosis Hypercholesteremia : How to access health information online Indication:Hypercholesteremia Hypercholesteremia : How to access health information online - Detail Indication:Hypercholesteremia Hypercholesteremia : Patient Instructions Indication:Hypercholesteremia Hypertension : How to access health information online Indication:Hypertension Hypertension : How to access health information online - Detail Indication:Hypertension Hypertension : Patient Instr uctions Indication:Hypertension BMI 31.0-31.9,adult : How to access health information online Indication:BMI 31.0-31.9,adult BMI 31.0-31.9,adult : How to access health information online - Detail Indication:BMI 31.0-31.9,adult BMI 31.0-31.9,adult : Patien t Instructions Indication:BMI 31.0-31.9,adult Name Dates Details How to access health informa tion online Indication:Nonsmoker Start:06-Dec-2017 Instruction Type:Patient Education How to access health informa tion online - Detail Indication:Nonsmoker Start:06-Dec-2017 Instruction Type:Patient Education Patient Instructions Indication:Nonsmoker Start:06-Dec-2017 Instruction Type:Provider Instructions for Treatment DISCONTINUED - LIPID PANEL ( [id number]) Indication:Hypercholesteremia Start:31-Oct-2017 Instruction Type:Patient Education How to access health informa tion online Indication:Nonsmoker Start:31-Oct-2017 Instruction Type:Patient Education How to access health informa tion online - Detail Indication:Nonsmoker Start:31-Oct-2017 Instruction Type:Patient Education Patient Instructions Indication:Nonsmoker Start:31-Oct-2017 Instruction Type:Provider Instructions for Treatment How to access health informa tion online Indication:Osteoporosis Start:31-Aug-2017 Instruction Type:Patient Education How to access health informa tion online - Detail Indication:Osteoporosis Start:31-Aug-2017 Instruction Type:Patient Education Patient Instructions Indication:Osteoporosis Start:31-Aug-2017 Instruction Type:Provider Instructions for Treatment How to access health informa tion online Indication:Hypercholesteremia Start:25-Jul-2017 Instruction Type:Patient Education How to access health informa tion online - Detail Indication:Hypercholesteremia Start:25-Jul-2017 Instruction Type:Patient Education Patient Instructions Indication:Hypercholesteremia Start:25-Jul-2017 Instruction Type:Provider Instructions for Treatment How to access health informa tion online Indication:Hypertension Start:20-Apr-2017 Instruction Type:Patient Education How to access health informa tion online - Detail Indication:Hypertension Start:20-Apr-2017 Instruction Type:Patient Education Patient Instructions Indication:Hypertension Start:20-Apr-2017 Instruction Type:Provider Instructions for Treatment How to access health informa tion online Indication:Hypercholesteremia Start:13-Nov-2016 Instruction Type:Patient Education How to access health informa tion online - Detail Indication:Hypercholesteremia Start:13-Nov-2016 Instruction Type:Patient Education Patient Instructions Indication:Hypercholesteremia Start:13-Nov-2016 Instruction Type:Provider Instructions for Treatment How to access health informa tion online Indication:BMI 31.0-31.9,adult Start:10-Oct-2016 Instruction Type:Patient Education How to access health informa tion online - Detail Indication:BMI 31.0-31.9,adult Start:10-Oct-2016 Instruction Type:Patient Education Patient Instructions Indication:BMI 31.0-31.9,adult Start:10-Oct-2016 Instruction Type:Provider Instructions for Treatment How to access health informa tion online Indication:Hypertension Start:27-Sep-2016 Instruction Type:Patient Education How to access health informa tion online - Detail Indication:Hypertension Start:27-Sep-2016 Instruction Type:Patient Education Patient Instructions Indication:Hypertension Start:27-Sep-2016 Instruction Type:Provider Instructions for Treatment Name Dates Details How to access health informa tion online Indication:Nonsmoker Start:06-Dec-2017 Instruction Type:Patient Education How to access health informa tion online - Detail Indication:Nonsmoker Start:06-Dec-2017 Instruction Type:Patient Education Patient Instructions Indication:Nonsmoker Start:06-Dec-2017 Instruction Type:Provider Instructions for Treatment DISCONTINUED - LIPID PANEL ( [id number]) Indication:Hypercholesteremia Start:31-Oct-2017 Instruction Type:Patient Education How to access health informa tion online Indication:Nonsmoker Start:31-Oct-2017 Instruction Type:Patient Education How to access health informa tion online - Detail Indication:Nonsmoker Start:31-Oct-2017 Instruction Type:Patient Education Patient Instructions Indication:Nonsmoker Start:31-Oct-2017 Instruction Type:Provider Instructions for Treatment How to access health informa tion online Indication:Osteoporosis Start:31-Aug-2017 Instruction Type:Patient Education How to access health informa tion online - Detail Indication:Osteoporosis Start:31-Aug-2017 Instruction Type:Patient Education Patient Instructions Indication:Osteoporosis Start:31-Aug-2017 Instruction Type:Provider Instructions for Treatment How to access health informa tion online Indication:Hypercholesteremia Start:25-Jul-2017 Instruction Type:Patient Education How to access health informa tion online - Detail Indication:Hypercholesteremia Start:25-Jul-2017 Instruction Type:Patient Education Patient Instructions Indication:Hypercholesteremia Start:25-Jul-2017 Instruction Type:Provider Instructions for Treatment How to access health informa tion online Indication:Hypertension Start:20-Apr-2017 Instruction Type:Patient Education How to access health informa tion online - Detail Indication:Hypertension Start:20-Apr-2017 Instruction Type:Patient Education Patient Instructions Indication:Hypertension Start:20-Apr-2017 Instruction Type:Provider Instructions for Treatment How to access health informa tion online Indication:Hypercholesteremia Start:13-Nov-2016 Instruction Type:Patient Education How to access health informa tion online - Detail Indication:Hypercholesteremia Start:13-Nov-2016 Instruction Type:Patient Education Patient Instructions Indication:Hypercholesteremia Start:13-Nov-2016 Instruction Type:Provider Instructions for Treatment How to access health informa tion online Indication:BMI 31.0-31.9,adult Start:10-Oct-2016 Instruction Type:Patient Education How to access health informa tion online - Detail Indication:BMI 31.0-31.9,adult Start:10-Oct-2016 Instruction Type:Patient Education Patient Instructions Indication:BMI 31.0-31.9,adult Start:10-Oct-2016 Instruction Type:Provider Instructions for Treatment How to access health informa tion online Indication:Hypertension Start:27-Sep-2016 Instruction Type:Patient Education How to access health informa tion online - Detail Indication:Hypertension Start:27-Sep-2016 Instruction Type:Patient Education Patient Instructions Indication:Hypertension Start:27-Sep-2016 Instruction Type:Provider Instructions for Treatment Name Dates Details Instructions not documented Name Dates Details Instructions not documented Name Dates Details Instructions not documented Name Dates Details How to access health informa tion online Indication:Nonsmoker Start:19-Nov-2019 Instruction Type:Patient Education How to access health informa tion online - Detail Indication:Nonsmoker Start:19-Nov-2019 Instruction Type:Patient Education Patient Instructions Indication:Nonsmoker Start:19-Nov-2019 Instruction Type:Provider Instructions for Treatment How to access health informa tion online Indication:Nonsmoker Start:19-Aug-2019 Instruction Type:Patient Education How to access health informa tion online - Detail Indication:Nonsmoker Start:19-Aug-2019 Instruction Type:Patient Education Patient Instructions Indication:Nonsmoker Start:19-Aug-2019 Instruction Type:Provider Instructions for Treatment How to access health informa tion online Indication:Nonsmoker Start:19-May-2019 Instruction Type:Patient Education How to access health informa tion online - Detail Indication:Nonsmoker Start:19-May-2019 Instruction Type:Patient Education Patient Instructions Indication:Nonsmoker Start:19-May-2019 Instruction Type:Provider Instructions for Treatment How to access health informa tion online Indication:Nonsmoker Start:06-Dec-2017 Instruction Type:Patient Education How to access health informa tion online - Detail Indication:Nonsmoker Start:06-Dec-2017 Instruction Type:Patient Education Patient Instructions Indication:Nonsmoker Start:06-Dec-2017 Instruction Type:Provider Instructions for Treatment DISCONTINUED - LIPID PANEL ( [id number]) Indication:Hypercholesteremia Start:31-Oct-2017 Instruction Type:Patient Education How to access health informa tion online Indication:Nonsmoker Start:31-Oct-2017 Instruction Type:Patient Education How to access health informa tion online - Detail Indication:Nonsmoker Start:31-Oct-2017 Instruction Type:Patient Education Patient Instructions Indication:Nonsmoker Start:31-Oct-2017 Instruction Type:Provider Instructions for Treatment How to access health informa tion online Indication:Osteoporosis Start:31-Aug-2017 Instruction Type:Patient Education How to access health informa tion online - Detail Indication:Osteoporosis Start:31-Aug-2017 Instruction Type:Patient Education Patient Instructions Indication:Osteoporosis Start:31-Aug-2017 Instruction Type:Provider Instructions for Treatment How to access health informa tion online Indication:Hypercholesteremia Start:25-Jul-2017 Instruction Type:Patient Education How to access health informa tion online - Detail Indication:Hypercholesteremia Start:25-Jul-2017 Instruction Type:Patient Education Patient Instructions Indication:Hypercholesteremia Start:25-Jul-2017 Instruction Type:Provider Instructions for Treatment How to access health informa tion online Indication:Hypertension Start:20-Apr-2017 Instruction Type:Patient Education How to access health informa tion online - Detail Indication:Hypertension Start:20-Apr-2017 Instruction Type:Patient Education Patient Instructions Indication:Hypertension Start:20-Apr-2017 Instruction Type:Provider Instructions for Treatment How to access health informa tion online Indication:Hypercholesteremia Start:13-Nov-2016 Instruction Type:Patient Education How to access health informa tion online - Detail Indication:Hypercholesteremia Start:13-Nov-2016 Instruction Type:Patient Education Patient Instructions Indication:Hypercholesteremia Start:13-Nov-2016 Instruction Type:Provider Instructions for Treatment How to access health informa tion online Indication:BMI 31.0-31.9,adult Start:10-Oct-2016 Instruction Type:Patient Education How to access health informa tion online - Detail Indication:BMI 31.0-31.9,adult Start:10-Oct-2016 Instruction Type:Patient Education Patient Instructions Indication:BMI 31.0-31.9,adult Start:10-Oct-2016 Instruction Type:Provider Instructions for Treatment How to access health informa tion online Indication:Hypertension Start:27-Sep-2016 Instruction Type:Patient Education How to access health informa tion online - Detail Indication:Hypertension Start:27-Sep-2016 Instruction Type:Patient Education Patient Instructions Indication:Hypertension Start:27-Sep-2016 Instruction Type:Provider Instructions for Treatment Name Dates Details How to access health informa tion online Indication:Nonsmoker Start:19-Nov-2019 Instruction Type:Patient Education How to access health informa tion online - Detail Indication:Nonsmoker Start:19-Nov-2019 Instruction Type:Patient Education Patient Instructions Indication:Nonsmoker Start:19-Nov-2019 Instruction Type:Provider Instructions for Treatment How to access health informa tion online Indication:Nonsmoker Start:19-Aug-2019 Instruction Type:Patient Education How to access health informa tion online - Detail Indication:Nonsmoker Start:19-Aug-2019 Instruction Type:Patient Education Patient Instructions Indication:Nonsmoker Start:19-Aug-2019 Instruction Type:Provider Instructions for Treatment How to access health informa tion online Indication:Nonsmoker Start:19-May-2019 Instruction Type:Patient Education How to access health informa tion online - Detail Indication:Nonsmoker Start:19-May-2019 Instruction Type:Patient Education Patient Instructions Indication:Nonsmoker Start:19-May-2019 Instruction Type:Provider Instructions for Treatment How to access health informa tion online Indication:Nonsmoker Start:06-Dec-2017 Instruction Type:Patient Education How to access health informa tion online - Detail Indication:Nonsmoker Start:06-Dec-2017 Instruction Type:Patient Education Patient Instructions Indication:Nonsmoker Start:06-Dec-2017 Instruction Type:Provider Instructions for Treatment DISCONTINUED - LIPID PANEL ( [id number]) Indication:Hypercholesteremia Start:31-Oct-2017 Instruction Type:Patient Education How to access health informa tion online Indication:Nonsmoker Start:31-Oct-2017 Instruction Type:Patient Education How to access health informa tion online - Detail Indication:Nonsmoker Start:31-Oct-2017 Instruction Type:Patient Education Patient Instructions Indication:Nonsmoker Start:31-Oct-2017 Instruction Type:Provider Instructions for Treatment How to access health informa tion online Indication:Osteoporosis Start:31-Aug-2017 Instruction Type:Patient Education How to access health informa tion online - Detail Indication:Osteoporosis Start:31-Aug-2017 Instruction Type:Patient Education Patient Instructions Indication:Osteoporosis Start:31-Aug-2017 Instruction Type:Provider Instructions for Treatment How to access health informa tion online Indication:Hypercholesteremia Start:25-Jul-2017 Instruction Type:Patient Education How to access health informa tion online - Detail Indication:Hypercholesteremia Start:25-Jul-2017 Instruction Type:Patient Education Patient Instructions Indication:Hypercholesteremia Start:25-Jul-2017 Instruction Type:Provider Instructions for Treatment How to access health informa tion online Indication:Hypertension Start:20-Apr-2017 Instruction Type:Patient Education How to access health informa tion online - Detail Indication:Hypertension Start:20-Apr-2017 Instruction Type:Patient Education Patient Instructions Indication:Hypertension Start:20-Apr-2017 Instruction Type:Provider Instructions for Treatment How to access health informa tion online Indication:Hypercholesteremia Start:13-Nov-2016 Instruction Type:Patient Education How to access health informa tion online - Detail Indication:Hypercholesteremia Start:13-Nov-2016 Instruction Type:Patient Education Patient Instructions Indication:Hypercholesteremia Start:13-Nov-2016 Instruction Type:Provider Instructions for Treatment How to access health informa tion online Indication:BMI 31.0-31.9,adult Start:10-Oct-2016 Instruction Type:Patient Education How to access health informa tion online - Detail Indication:BMI 31.0-31.9,adult Start:10-Oct-2016 Instruction Type:Patient Education Patient Instructions Indication:BMI 31.0-31.9,adult Start:10-Oct-2016 Instruction Type:Provider Instructions for Treatment How to access health informa tion online Indication:Hypertension Start:27-Sep-2016 Instruction Type:Patient Education How to access health informa tion online - Detail Indication:Hypertension Start:27-Sep-2016 Instruction Type:Patient Education Patient Instructions Indication:Hypertension Start:27-Sep-2016 Instruction Type:Provider Instructions for Treatment Name Dates Details Patient Instructions Indication:BMI 32.0-32.9,adult Start:02-Mar-2020 Instruction Type:Provider Instructions for Treatment How to Access Health Informa tion Online using Patient Portal and [employer] Apps Indication:BMI 32.0-32.9,adult Start:02-Mar-2020 Instruction Type:Patient Education How to access health informa tion online Indication:Nonsmoker Start:19-Nov-2019 Instruction Type:Patient Education How to access health informa tion online - Detail Indication:Nonsmoker Start:19-Nov-2019 Instruction Type:Patient Education Patient Instructions Indication:Nonsmoker Start:19-Nov-2019 Instruction Type:Provider Instructions for Treatment How to access health informa tion online Indication:Nonsmoker Start:19-Aug-2019 Instruction Type:Patient Education How to access health informa tion online - Detail Indication:Nonsmoker Start:19-Aug-2019 Instruction Type:Patient Education Patient Instructions Indication:Nonsmoker Start:19-Aug-2019 Instruction Type:Provider Instructions for Treatment How to access health informa tion online Indication:Nonsmoker Start:19-May-2019 Instruction Type:Patient Education How to access health informa tion online - Detail Indication:Nonsmoker Start:19-May-2019 Instruction Type:Patient Education Patient Instructions Indication:Nonsmoker Start:19-May-2019 Instruction Type:Provider Instructions for Treatment How to access health informa tion online Indication:Nonsmoker Start:06-Dec-2017 Instruction Type:Patient Education How to access health informa tion online - Detail Indication:Nonsmoker Start:06-Dec-2017 Instruction Type:Patient Education Patient Instructions Indication:Nonsmoker Start:06-Dec-2017 Instruction Type:Provider Instructions for Treatment DISCONTINUED - LIPID PANEL ( [id number]) Indication:Hypercholesteremia Start:31-Oct-2017 Instruction Type:Patient Education How to access health informa tion online Indication:Nonsmoker Start:31-Oct-2017 Instruction Type:Patient Education How to access health informa tion online - Detail Indication:Nonsmoker Start:31-Oct-2017 Instruction Type:Patient Education Patient Instructions Indication:Nonsmoker Start:31-Oct-2017 Instruction Type:Provider Instructions for Treatment How to access health informa tion online Indication:Osteoporosis Start:31-Aug-2017 Instruction Type:Patient Education How to access health informa tion online - Detail Indication:Osteoporosis Start:31-Aug-2017 Instruction Type:Patient Education Patient Instructions Indication:Osteoporosis Start:31-Aug-2017 Instruction Type:Provider Instructions for Treatment How to access health informa tion online Indication:Hypercholesteremia Start:25-Jul-2017 Instruction Type:Patient Education How to access health informa tion online - Detail Indication:Hypercholesteremia Start:25-Jul-2017 Instruction Type:Patient Education Patient Instructions Indication:Hypercholesteremia Start:25-Jul-2017 Instruction Type:Provider Instructions for Treatment How to access health informa tion online Indication:Hypertension Start:20-Apr-2017 Instruction Type:Patient Education How to access health informa tion online - Detail Indication:Hypertension Start:20-Apr-2017 Instruction Type:Patient Education Patient Instructions Indication:Hypertension Start:20-Apr-2017 Instruction Type:Provider Instructions for Treatment How to access health informa tion online Indication:Hypercholesteremia Start:13-Nov-2016 Instruction Type:Patient Education How to access health informa tion online - Detail Indication:Hypercholesteremia Start:13-Nov-2016 Instruction Type:Patient Education Patient Instructions Indication:Hypercholesteremia Start:13-Nov-2016 Instruction Type:Provider Instructions for Treatment How to access health informa tion online Indication:BMI 31.0-31.9,adult Start:10-Oct-2016 Instruction Type:Patient Education How to access health informa tion online - Detail Indication:BMI 31.0-31.9,adult Start:10-Oct-2016 Instruction Type:Patient Education Patient Instructions Indication:BMI 31.0-31.9,adult Start:10-Oct-2016 Instruction Type:Provider Instructions for Treatment How to access health informa tion online Indication:Hypertension Start:27-Sep-2016 Instruction Type:Patient Education How to access health informa tion online - Detail Indication:Hypertension Start:27-Sep-2016 Instruction Type:Patient Education Patient Instructions Indication:Hypertension Start:27-Sep-2016 Instruction Type:Provider Instructions for Treatment Name Dates Details Instructions not documented Name Dates Details How to access health informa tion online Indication:Nonsmoker Start:19-Aug-2019 Instruction Type:Patient Education How to access health informa tion online - Detail Indication:Nonsmoker Start:19-Aug-2019 Instruction Type:Patient Education Patient Instructions Indication:Nonsmoker Start:19-Aug-2019 Instruction Type:Provider Instructions for Treatment How to access health informa tion online Indication:Nonsmoker Start:19-May-2019 Instruction Type:Patient Education How to access health informa tion online - Detail Indication:Nonsmoker Start:19-May-2019 Instruction Type:Patient Education Patient Instructions Indication:Nonsmoker Start:19-May-2019 Instruction Type:Provider Instructions for Treatment How to access health informa tion online Indication:Nonsmoker Start:06-Dec-2017 Instruction Type:Patient Education How to access health informa tion online - Detail Indication:Nonsmoker Start:06-Dec-2017 Instruction Type:Patient Education Patient Instructions Indication:Nonsmoker Start:06-Dec-2017 Instruction Type:Provider Instructions for Treatment DISCONTINUED - LIPID PANEL ( [id number]) Indication:Hypercholesteremia Start:31-Oct-2017 Instruction Type:Patient Education How to access health informa tion online Indication:Nonsmoker Start:31-Oct-2017 Instruction Type:Patient Education How to access health informa tion online - Detail Indication:Nonsmoker Start:31-Oct-2017 Instruction Type:Patient Education Patient Instructions Indication:Nonsmoker Start:31-Oct-2017 Instruction Type:Provider Instructions for Treatment How to access health informa tion online Indication:Osteoporosis Start:31-Aug-2017 Instruction Type:Patient Education How to access health informa tion online - Detail Indication:Osteoporosis Start:31-Aug-2017 Instruction Type:Patient Education Patient Instructions Indication:Osteoporosis Start:31-Aug-2017 Instruction Type:Provider Instructions for Treatment How to access health informa tion online Indication:Hypercholesteremia Start:25-Jul-2017 Instruction Type:Patient Education How to access health informa tion online - Detail Indication:Hypercholesteremia Start:25-Jul-2017 Instruction Type:Patient Education Patient Instructions Indication:Hypercholesteremia Start:25-Jul-2017 Instruction Type:Provider Instructions for Treatment How to access health informa tion online Indication:Hypertension Start:20-Apr-2017 Instruction Type:Patient Education How to access health informa tion online - Detail Indication:Hypertension Start:20-Apr-2017 Instruction Type:Patient Education Patient Instructions Indication:Hypertension Start:20-Apr-2017 Instruction Type:Provider Instructions for Treatment How to access health informa tion online Indication:Hypercholesteremia Start:13-Nov-2016 Instruction Type:Patient Education How to access health informa tion online - Detail Indication:Hypercholesteremia Start:13-Nov-2016 Instruction Type:Patient Education Patient Instructions Indication:Hypercholesteremia Start:13-Nov-2016 Instruction Type:Provider Instructions for Treatment How to access health informa tion online Indication:BMI 31.0-31.9,adult Start:10-Oct-2016 Instruction Type:Patient Education How to access health informa tion online - Detail Indication:BMI 31.0-31.9,adult Start:10-Oct-2016 Instruction Type:Patient Education Patient Instructions Indication:BMI 31.0-31.9,adult Start:10-Oct-2016 Instruction Type:Provider Instructions for Treatment How to access health informa tion online Indication:Hypertension Start:27-Sep-2016 Instruction Type:Patient Education How to access health informa tion online - Detail Indication:Hypertension Start:27-Sep-2016 Instruction Type:Patient Education Patient Instructions Indication:Hypertension Start:27-Sep-2016 Instruction Type:Provider Instructions for Treatment Name Dates Details Instructions not documented Name Dates Details Patient Instructions Indication:BMI 31.0-31.9,adult Start:15-Mar-2020 Instruction Type:Provider Instructions for Treatment How to Access Health Informa tion Online using Patient Portal and [employer]rd [employer] Apps Indication:BMI 31.0-31.9,adult Start:15-Mar-2020 Instruction Type:Patient Education Patient Instructions Indication:BMI 32.0-32.9,adult Start:02-Mar-2020 Instruction Type:Provider Instructions for Treatment How to Access Health Informa tion Online using Patient Portal and [employer]rd [employer] Apps Indication:BMI 32.0-32.9,adult Start:02-Mar-2020 Instruction Type:Patient Education How to access health informa tion online Indication:Nonsmoker Start:19-Nov-2019 Instruction Type:Patient Education How to access health informa tion online - Detail Indication:Nonsmoker Start:19-Nov-2019 Instruction Type:Patient Education Patient Instructions Indication:Nonsmoker Start:19-Nov-2019 Instruction Type:Provider Instructions for Treatment How to access health informa tion online Indication:Nonsmoker Start:19-Aug-2019 Instruction Type:Patient Education How to access health informa tion online - Detail Indication:Nonsmoker Start:19-Aug-2019 Instruction Type:Patient Education Patient Instructions Indication:Nonsmoker Start:19-Aug-2019 Instruction Type:Provider Instructions for Treatment How to access health informa tion online Indication:Nonsmoker Start:19-May-2019 Instruction Type:Patient Education How to access health informa tion online - Detail Indication:Nonsmoker Start:19-May-2019 Instruction Type:Patient Education Patient Instructions Indication:Nonsmoker Start:19-May-2019 Instruction Type:Provider Instructions for Treatment How to access health informa tion online Indication:Nonsmoker Start:06-Dec-2017 Instruction Type:Patient Education How to access health informa tion online - Detail Indication:Nonsmoker Start:06-Dec-2017 Instruction Type:Patient Education Patient Instructions Indication:Nonsmoker Start:06-Dec-2017 Instruction Type:Provider Instructions for Treatment DISCONTINUED - LIPID PANEL ( [id number]) Indication:Hypercholesteremia Start:31-Oct-2017 Instruction Type:Patient Education How to access health informa tion online Indication:Nonsmoker Start:31-Oct-2017 Instruction Type:Patient Education How to access health informa tion online - Detail Indication:Nonsmoker Start:31-Oct-2017 Instruction Type:Patient Education Patient Instructions Indication:Nonsmoker Start:31-Oct-2017 Instruction Type:Provider Instructions for Treatment How to access health informa tion online Indication:Osteoporosis Start:31-Aug-2017 Instruction Type:Patient Education How to access health informa tion online - Detail Indication:Osteoporosis Start:31-Aug-2017 Instruction Type:Patient Education Patient Instructions Indication:Osteoporosis Start:31-Aug-2017 Instruction Type:Provider Instructions for Treatment How to access health informa tion online Indication:Hypercholesteremia Start:25-Jul-2017 Instruction Type:Patient Education How to access health informa tion online - Detail Indication:Hypercholesteremia Start:25-Jul-2017 Instruction Type:Patient Education Patient Instructions Indication:Hypercholesteremia Start:25-Jul-2017 Instruction Type:Provider Instructions for Treatment How to access health informa tion online Indication:Hypertension Start:20-Apr-2017 Instruction Type:Patient Education How to access health informa tion online - Detail Indication:Hypertension Start:20-Apr-2017 Instruction Type:Patient Education Patient Instructions Indication:Hypertension Start:20-Apr-2017 Instruction Type:Provider Instructions for Treatment How to access health informa tion online Indication:Hypercholesteremia Start:13-Nov-2016 Instruction Type:Patient Education How to access health informa tion online - Detail Indication:Hypercholesteremia Start:13-Nov-2016 Instruction Type:Patient Education Patient Instructions Indication:Hypercholesteremia Start:13-Nov-2016 Instruction Type:Provider Instructions for Treatment How to access health informa tion online Indication:BMI 31.0-31.9,adult Start:10-Oct-2016 Instruction Type:Patient Education How to access health informa tion online - Detail Indication:BMI 31.0-31.9,adult Start:10-Oct-2016 Instruction Type:Patient Education Patient Instructions Indication:BMI 31.0-31.9,adult Start:10-Oct-2016 Instruction Type:Provider Instructions for Treatment How to access health informa tion online Indication:Hypertension Start:27-Sep-2016 Instruction Type:Patient Education How to access health informa tion online - Detail Indication:Hypertension Start:27-Sep-2016 Instruction Type:Patient Education Patient Instructions Indication:Hypertension Start:27-Sep-2016 Instruction Type:Provider Instructions for Treatment Name Dates Details Patient Instructions Indication:BMI 31.0-31.9,adult Start:15-Mar-2020 Instruction Type:Provider Instructions for Treatment How to Access Health Informa tion Online using Patient Portal and 3rd [employer] Apps Indication:BMI 31.0-31.9,adult Start:15-Mar-2020 Instruction Type:Patient Education Patient Instructions Indication:BMI 32.0-32.9,adult Start:02-Mar-2020 Instruction Type:Provider Instructions for Treatment How to Access Health Informa tion Online using Patient Portal and [employer]rd [employer] Apps Indication:BMI 32.0-32.9,adult Start:02-Mar-2020 Instruction Type:Patient Education How to access health informa tion online Indication:Nonsmoker Start:19-Nov-2019 Instruction Type:Patient Education How to access health informa tion online - Detail Indication:Nonsmoker Start:19-Nov-2019 Instruction Type:Patient Education Patient Instructions Indication:Nonsmoker Start:19-Nov-2019 Instruction Type:Provider Instructions for Treatment How to access health informa tion online Indication:Nonsmoker Start:19-Aug-2019 Instruction Type:Patient Education How to access health informa tion online - Detail Indication:Nonsmoker Start:19-Aug-2019 Instruction Type:Patient Education Patient Instructions Indication:Nonsmoker Start:19-Aug-2019 Instruction Type:Provider Instructions for Treatment How to access health informa tion online Indication:Nonsmoker Start:19-May-2019 Instruction Type:Patient Education How to access health informa tion online - Detail Indication:Nonsmoker Start:19-May-2019 Instruction Type:Patient Education Patient Instructions Indication:Nonsmoker Start:19-May-2019 Instruction Type:Provider Instructions for Treatment How to access health informa tion online Indication:Nonsmoker Start:06-Dec-2017 Instruction Type:Patient Education How to access health informa tion online - Detail Indication:Nonsmoker Start:06-Dec-2017 Instruction Type:Patient Education Patient Instructions Indication:Nonsmoker Start:06-Dec-2017 Instruction Type:Provider Instructions for Treatment DISCONTINUED - LIPID PANEL ( [id number]) Indication:Hypercholesteremia Start:31-Oct-2017 Instruction Type:Patient Education How to access health informa tion online Indication:Nonsmoker Start:31-Oct-2017 Instruction Type:Patient Education How to access health informa tion online - Detail Indication:Nonsmoker Start:31-Oct-2017 Instruction Type:Patient Education Patient Instructions Indication:Nonsmoker Start:31-Oct-2017 Instruction Type:Provider Instructions for Treatment How to access health informa tion online Indication:Osteoporosis Start:31-Aug-2017 Instruction Type:Patient Education How to access health informa tion online - Detail Indication:Osteoporosis Start:31-Aug-2017 Instruction Type:Patient Education Patient Instructions Indication:Osteoporosis Start:31-Aug-2017 Instruction Type:Provider Instructions for Treatment How to access health informa tion online Indication:Hypercholesteremia Start:25-Jul-2017 Instruction Type:Patient Education How to access health informa tion online - Detail Indication:Hypercholesteremia Start:25-Jul-2017 Instruction Type:Patient Education Patient Instructions Indication:Hypercholesteremia Start:25-Jul-2017 Instruction Type:Provider Instructions for Treatment How to access health informa tion online Indication:Hypertension Start:20-Apr-2017 Instruction Type:Patient Education How to access health informa tion online - Detail Indication:Hypertension Start:20-Apr-2017 Instruction Type:Patient Education Patient Instructions Indication:Hypertension Start:20-Apr-2017 Instruction Type:Provider Instructions for Treatment How to access health informa tion online Indication:Hypercholesteremia Start:13-Nov-2016 Instruction Type:Patient Education How to access health informa tion online - Detail Indication:Hypercholesteremia Start:13-Nov-2016 Instruction Type:Patient Education Patient Instructions Indication:Hypercholesteremia Start:13-Nov-2016 Instruction Type:Provider Instructions for Treatment How to access health informa tion online Indication:BMI 31.0-31.9,adult Start:10-Oct-2016 Instruction Type:Patient Education How to access health informa tion online - Detail Indication:BMI 31.0-31.9,adult Start:10-Oct-2016 Instruction Type:Patient Education Patient Instructions Indication:BMI 31.0-31.9,adult Start:10-Oct-2016 Instruction Type:Provider Instructions for Treatment How to access health informa tion online Indication:Hypertension Start:27-Sep-2016 Instruction Type:Patient Education How to access health informa tion online - Detail Indication:Hypertension Start:27-Sep-2016 Instruction Type:Patient Education Patient Instructions Indication:Hypertension Start:27-Sep-2016 Instruction Type:Provider Instructions for Treatment Name Dates Details Patient Instructions Indication:BMI 32.0-32.9,adult Start:02-Mar-2020 Instruction Type:Provider Instructions for Treatment How to Access Health Informa tion Online using Patient Portal and [employer] Apps Indication:BMI 32.0-32.9,adult Start:02-Mar-2020 Instruction Type:Patient Education How to access health informa tion online Indication:Nonsmoker Start:19-Nov-2019 Instruction Type:Patient Education How to access health informa tion online - Detail Indication:Nonsmoker Start:19-Nov-2019 Instruction Type:Patient Education Patient Instructions Indication:Nonsmoker Start:19-Nov-2019 Instruction Type:Provider Instructions for Treatment How to access health informa tion online Indication:Nonsmoker Start:19-Aug-2019 Instruction Type:Patient Education How to access health informa tion online - Detail Indication:Nonsmoker Start:19-Aug-2019 Instruction Type:Patient Education Patient Instructions Indication:Nonsmoker Start:19-Aug-2019 Instruction Type:Provider Instructions for Treatment How to access health informa tion online Indication:Nonsmoker Start:19-May-2019 Instruction Type:Patient Education How to access health informa tion online - Detail Indication:Nonsmoker Start:19-May-2019 Instruction Type:Patient Education Patient Instructions Indication:Nonsmoker Start:19-May-2019 Instruction Type:Provider Instructions for Treatment How to access health informa tion online Indication:Nonsmoker Start:06-Dec-2017 Instruction Type:Patient Education How to access health informa tion online - Detail Indication:Nonsmoker Start:06-Dec-2017 Instruction Type:Patient Education Patient Instructions Indication:Nonsmoker Start:06-Dec-2017 Instruction Type:Provider Instructions for Treatment DISCONTINUED - LIPID PANEL ( [id number]) Indication:Hypercholesteremia Start:31-Oct-2017 Instruction Type:Patient Education How to access health informa tion online Indication:Nonsmoker Start:31-Oct-2017 Instruction Type:Patient Education How to access health informa tion online - Detail Indication:Nonsmoker Start:31-Oct-2017 Instruction Type:Patient Education Patient Instructions Indication:Nonsmoker Start:31-Oct-2017 Instruction Type:Provider Instructions for Treatment How to access health informa tion online Indication:Osteoporosis Start:31-Aug-2017 Instruction Type:Patient Education How to access health informa tion online - Detail Indication:Osteoporosis Start:31-Aug-2017 Instruction Type:Patient Education Patient Instructions Indication:Osteoporosis Start:31-Aug-2017 Instruction Type:Provider Instructions for Treatment How to access health informa tion online Indication:Hypercholesteremia Start:25-Jul-2017 Instruction Type:Patient Education How to access health informa tion online - Detail Indication:Hypercholesteremia Start:25-Jul-2017 Instruction Type:Patient Education Patient Instructions Indication:Hypercholesteremia Start:25-Jul-2017 Instruction Type:Provider Instructions for Treatment How to access health informa tion online Indication:Hypertension Start:20-Apr-2017 Instruction Type:Patient Education How to access health informa tion online - Detail Indication:Hypertension Start:20-Apr-2017 Instruction Type:Patient Education Patient Instructions Indication:Hypertension Start:20-Apr-2017 Instruction Type:Provider Instructions for Treatment How to access health informa tion online Indication:Hypercholesteremia Start:13-Nov-2016 Instruction Type:Patient Education How to access health informa tion online - Detail Indication:Hypercholesteremia Start:13-Nov-2016 Instruction Type:Patient Education Patient Instructions Indication:Hypercholesteremia Start:13-Nov-2016 Instruction Type:Provider Instructions for Treatment How to access health informa tion online Indication:BMI 31.0-31.9,adult Start:10-Oct-2016 Instruction Type:Patient Education How to access health informa tion online - Detail Indication:BMI 31.0-31.9,adult Start:10-Oct-2016 Instruction Type:Patient Education Patient Instructions Indication:BMI 31.0-31.9,adult Start:10-Oct-2016 Instruction Type:Provider Instructions for Treatment How to access health informa tion online Indication:Hypertension Start:27-Sep-2016 Instruction Type:Patient Education How to access health informa tion online - Detail Indication:Hypertension Start:27-Sep-2016 Instruction Type:Patient Education Patient Instructions Indication:Hypertension Start:27-Sep-2016 Instruction Type:Provider Instructions for Treatment Name Dates Details Instructions not documented Reason for Referral Specialty Diagnoses / Procedures Referred By Contac t Referred To Contact Diagnoses Bilateral leg edema Procedures CONSULT TO VASCULAR SURGERY OFFICE/OUTPATIENT [facility] 60-74 MINUTES Geraldine Allred MD [address] [place] [address] Marge Plata, [address] [id number] Referral ID Status Reason Start Date Expiration Date Visits Requested Visits Authorized [id number] Authorized PCP Requested Referral 04/06/2021 04/06/2022 1 1 Specialty Diagnoses / Procedures Referred By Contac t Referred To Contact Cardiology Diagnoses Lower extremity edema Procedures Echocardiogram complete DayAnju MD [address] [place] [address] Referral ID Status Reason Start Date Expiration Date V isits Requested Visits Authorized [id number] Pending Review 06/21/2022 06/21/2023 1 1 Specialty Diagnoses / Procedures Referred By Contac t Referred To Contact Cardiology Diagnoses PAD (peripheral artery disease) ([facility]) Procedures ECG 12 lead Anju Fink MD [address] [place] [address] Referral ID Status Reason Start Date Expiration Date V isits Requested Visits Authorized [id number] Authorized 06/21/2022 06/21/2023 1 1 Additional Source Comments INFORMATION SOURCE (unrecogn ized section and content) DATE CREATED AUTHOR AUTHOR'S ORGANIZ ATION 08/23/2018 [facility] DATE CREATED AUTHOR AUTHOR'S ORGANIZ ATION 07/05/2019 [employer] DATE CREATED AUTHOR AUTHOR'S ORGANIZ ATION 01/10/2022 [facility] DATE CREATED AUTHOR AUTHOR'S ORGANIZ ATION 01/11/2022 [facility] DATE CREATED AUTHOR AUTHOR'S ORGANIZ ATION 07/04/2022 [facility] DATE CREATED AUTHOR AUTHOR'S ORGANIZ ATION 07/05/2022 [facility] DATE CREATED AUTHOR AUTHOR'S ORGANIZ ATION 01/01/2023 [facility] Reason for Visit (unrecogniz ed section and content) Specialty Diagnoses / Procedures Referred By Jim costa Referred To Contact Rehabilitation Diagnoses Left hip pain Star Burt MD [address] [place] [address] [facility] [place] [address] [address] [place] [address] Referral ID Status Reason Start Date Expiration Date Visits Requested Visits Authorized [id number] Pending Review Specialty Services Required/Pat ient's Best Interest 1 01/05/2022 9 199 Referral ID Status Reason Start Date Expiration Date Visits Requested Visits Authorized [id number] Authorized Specialty Services Required/Pat ient's Best Interest 1 01/05/2022 9 199 Reason Comments Follow Up Reason Comments Initial Visit (Intake) Leg swelling Reason Onset Date Comments Population Health Navigation Outreach 11/08/2022 [facility] Care Teams (unrecognized sec tion and content) [employer] Relationship Specialty Start Date End Date Maria Luz Moise CNP [address] [place] [address] PCP - General Nurse Practitioner 12/14/20 [employer] Relationship Specialty Start Date End Date Maria Luz Moise CNP [address] [place] [address] PCP - General Nurse Practitioner 12/14/20 [employer] Work[employer] Relationship Specialty Start Date End Date Maria Luz Moise CNP [address] [place] [address] PCP - General Nurse Practitioner 12/14/20 [employer] Work[employer] Relationship Specialty Start Date End Date Maria Luz Moise, DAKOTA [address] [place] [address] PCP - General Nurse Practitioner 12/14/20 [employer] Work[employer] Relationship Specialty Start Date End Date Maria Luz Moise CNP [address] [place] [address] PCP - General Nurse Practitioner 12/14/20 [employer] Worker Relationship Specialty Start Date End Date Maria Luz Moise, DAKOTA [address] [place] [address] PCP - General Nurse Practitioner 12/14/20 [employer] Worker Relationship Specialty Start Date End Date Geraldine Allred MD [address] [place], [place] [id number] PCP - General Internal Medicine 03/12/21 [employer] Worker Relationship Specialty Start Date End Date AshBrian CNP [address] [place] [address] PCP - General Nurse Practitioner 06/21/22 [employer] Worker Relationship Specialty Start Date End Date Geraldine Allred MD [address] [place], [place] [phone] PCP - General Internal Medicine 03/12/21 Source Comments (unrecognize d section and content) In the event this informatio n is protected by the Federal Confidentiality of Alcohol and Drug Abuse Patient Records regulations: The Federal rules restrict any use of the information to criminally investigate or prosecute any alcohol or drug abuse patient.[facility] the event this information is protected by the Federal Confidentiality of Alcohol and Drug Abuse Patient Records regulations: The Federal rules restrict any use of the information to criminally investigate or prosecute any alcohol or drug abuse patient.[facility] <item> Privacy Markings (unrecogniz ed section and content) Section Author: Janet iJang PROHIBITION ON REDISCLOSURE OF CONFIDENTIAL INFORMATION This notice accompanies a disclosure of information concerning a client made to you with the consent of such client. FOR RECORDS PERTAINING TO PATIENTS WHO ARE OR HAVE BEEN ENROLLED IN A CHEMICAL DEPENDENCY/SUBSTANCEABUSE PROGRAM, SOME INFORMATION MAY BE OMITTED. This clinical summary was aggregated from multiple sources. Caution should be exercised in using it in the provision of clinical care. This summary normalizes information from multiple sources, and as a consequence, information in this document may materially change the coding, format and clinical context of patient data. In addition, data may be omitted in some cases. CLINICAL DECISIONS SHOULD BE BASED ON THE PRIMARY CLINICAL RECORDS. [facility] provides no warranty or guarantee of the accuracy or completeness of information in this document.
[2023-02-21 16:49] LABS: AST(SGOT) 30 U/L (15-37); Alanine Aminotransfer ALT/SGPT 39 U/L (13-56); Albumin, Serum 3.7 g/dL (3.2-5.0); Alkaline Phosphatase 99 U/L (45-117); Anion Gap 1 (5-15); BUN 19 mg/dL (7-18); BUN/Creat Ratio 15.6 RATIO (10-20); Calcium,Total 9.7 mg/dL (8.5-10.1); Chloride 110 mmol/L (98-107); Creatinine, Serum 1.22 mg/dL (0.55-1.02); EST Glomerular Filtration Rate 45 mL/min (>60); Est Glom Filt Rate - Afr Amer 55 mL/min (>60); Estimated Creatinine Clearance 30.06 ml/min; Globulin 3.6 g/dL (2.2-4.2); Glucose 98 mg/dL (74-106); Potassium 4.1 mmol/L (3.5-5.1); Protein, Total 7.3 g/dL (6.4-8.2); Sodium Level 140 mmol/L (136-145)
[2023-02-21 16:57] LABS: Mucous, Urine 0 SEEN /hpf (<or=2+); Squamous Epithelial Cells - UA 0 SEEN /hpf (5-10)
[2023-02-21 16:59] LABS: Color, Urine Yellow (Yellow); Glucose, Dipstick Normal (Normal); Ketone-Dipstick Negative (Negative); Leukocyte Esterase-Dipstick 100 /ul (Negative); Nitrite-Dipstick Positive (Negative); Occult Blood-Urine 25 /ul (Negative); Protein-Dipstick Negative (Negative); Urine Bilirubin Dipstick Negative (Negative); Urine Clarity Clear (Clear); Urine Urobilinogen Normal (Normal)
[2023-02-21 17:09] LABS: White Blood Cells 0-5 SEEN /hpf (0-5)
[2023-02-21 17:10] LABS: Bacteria 2+ /hpf (None Seen); Red Blood Cells-Urine 0-5 SEEN /hpf (0-5)
[2023-02-21] MEDS: Nitrofurantoin Macrocrystals 100 MG Capsule PO (18:17)
[2023-02-21 18:24] VITALS: BP 166/98; PULSE 68; RESP 16; O2SAT 100
== END 2023-02-21 18:36 | disposition home or self-care (01) ==
PROVIDERS: Emergency Provider Emergency Medicine; PCP Internal Medicine; Visit Provider Emergency Medicine
DX: I89.0 Lymphedema, not elsewhere classified (principal); N30.00 Acute cystitis without hematuria; I10 Essential (primary) hypertension; Z86.718 Personal history of other venous thrombosis and embolism
CPT/HCPCS: 80053; 81001; 85025; 87086; 87088; 87186; 93971; 99282; A4216

== ENCOUNTER → 2023-03-26 | Outpatient (CLI) | payer MEDICARE, BC, SELFPAY ==
--- NOTE | 2023-03-26 07:31 | MRI_ITS ---
HISTORY: Chronic low back pain for years, NKI, no surgery. TECHNIQUE: Multiplanar and multisequence MR images of the lumbar spine were obtained without intravenous contrast. 159 images. COMPARISON: XR 03/22/2023. FINDINGS: VERTEBRAE: Vertebral body heights maintained. Degenerative bone marrow endplate changes at multiple levels particularly L4-5 and L5-S1. ALIGNMENT: Mild 3 mm anterolisthesis of L3-4 and L4-5. Mild scoliosis. CONUS: Normal morphology of the conus medullaris with tip at L2. INTERVERTEBRAL DISCS: T12-L1: Posterior disc bulge osteophyte complex with facet arthropathy resulting in mild-moderate central canal stenosis and bilateral foraminal narrowing based on the sagittal images. L1-2: Mild posterior disc bulge osteophyte complex with facet arthropathy resulting in mild central canal stenosis and moderate bilateral foraminal narrowing. Superimposed left paracentral disc extrusion with inferior migration resulting in left L2 nerve root impingement. L2-3: Posterior disc bulge osteophyte complex with facet arthropathy superimposed on a developmentally narrow spinal canal resulting in moderate-severe central canal stenosis and moderate bilateral foraminal narrowing. L3-4: Posterior disc bulge osteophyte complex with facet arthropathy superimposed on a developmentally narrow spinal canal and mild listhesis resulting in severe central canal stenosis, bilateral L4 nerve root abutment, and mild bilateral foraminal narrowing. L4-5: Moderate disc bulge with facet arthropathy superimposed on a developmentally narrow spinal canal and mild listhesis resulting in markedly severe central canal stenosis, mild left foraminal narrowing, and severe right foraminal narrowing with right L4 nerve root impingement. L5-S1: Posterior disc bulge osteophyte complex with facet arthropathy resulting in mild central canal stenosis, moderate right foraminal narrowing with right L5 nerve root abutment, and severe left foraminal narrowing with left L5 nerve root impingement. SOFT TISSUES: Lobulated uterus with a 3.6 cm leiomyoma. Trace free fluid in the pelvis. Sigmoid diverticulosis. Mild posterior subcutaneous edema. Trace left hip effusion. MRI/Spine Lumbar (Routine) IMPRESSION: Multilevel degenerative disc disease resulting in markedly severe spinal canal stenosis of L4-5. Severe spinal canal stenosis of L3-4. Moderate-severe spinal canal stenosis of L2-3. Bilateral nerve root impingement/abutment as above. Electronically Signed: Faith Santiago MD at 10:53 EST ,
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
== END | disposition home or self-care (01) ==
PROVIDERS: PCP Internal Medicine; Referring Provider Orthopaedic Surgery; Visit Provider Orthopaedic Surgery
DX: M51.36 Other intervertebral disc degeneration, lumbar region (principal); M43.10 Spondylolisthesis, site unspecified
CPT/HCPCS: 70030; 72148

== ENCOUNTER → 2023-06-12 | Outpatient (CLI) | payer MEDICARE, BC, SELFPAY ==
--- NOTE | 2023-06-12 13:15 | RAD_ITS ---
STUDY: X-RAY - CERVICAL SPINE REASON FOR EXAM: Female, 77 years old. Neck pain. TECHNIQUE: 3 view(s) of the cervical spine were obtained. COMPARISON: None FINDINGS: Osteopenia. Normal anterior atlantoaxial articulation. Normal odontoid process. Reversal of the normal lordosis, likely positional. Diffuse moderate to marked uncovertebral and facet sclerosis. Normal alignment of the vertebral bodies. Marked intervertebral disc space narrowing from C3-4 to C7-T1 with osteophytes most marked at C4-5, C5-6 and C6-7. Right carotid calcification. RAD/Cerv Spine 2 or 3 Views IMPRESSION: Osteopenia with diffuse moderate to marked cervical spondylosis as described. Electronically Signed: Adriel Shin MD at 10:25 EDT ,
== END | disposition home or self-care (01) ==
LOC: RAD 13:11
PROVIDERS: PCP Internal Medicine; Referring Provider Anesthesiology Pain Medicine; Visit Provider Anesthesiology Pain Medicine
DX: M50.30 Other cervical disc degeneration, unspecified cervical region (principal); M47.812 Spondylosis without myelopathy or radiculopathy, cervical region
CPT/HCPCS: 72040